=== PATIENT | female | born 1995 | race Two or more races ===

== ENCOUNTER 2017-10-19 16:44 | Emergency (ER) | payer SELFPAY ==
[2016-08-22 10:27] VITALS: Ht 165.1 cm; Wt 73.9 kg
[~2017-10-19] VITALS: Ht 165.1 cm; Wt 73.9 kg
[~2017-10-19 16:44] MED LIST: ALB6.7R INH; ALBU8.5H IH; ALPR-429 PO; AMOX-362 PO; AMOX500T10 PO; AZIT-17 PO; CEPH500C24 PO; FLUT1DIS27 IH; GLUC-158 PO; HYDR-385 PO; HYDR-4309 PO; IBUP800T37 PO; LOR5/325 PO; METH4TAB66 PO; ONDA4TAB PO; PENI-24 PO; PRED20TA6 PO; SULF-198 PO; TRAM-420 PO
[2017-10-19] MEDS ORDERED: ALPR-429 PO (16:56)
[2017-10-19 17:18] LABS: PLATELET COUNT, AUTOMATED 180 K/uL (150-450)
--- NOTE | 2017-10-19 17:54 | ER Report ---
History and Physical Time Seen By MD: 17:00 Hx. of Stated Complaint: patient reports epigastric pain that started last night. she is 10 weeks HPI/ROS CHIEF COMPLAINT: Abdominal pain HISTORY OF PRESENT ILLNESS: She is a 22-year-old female accompanied by her significant other, who presents the ED with complaint of abdominal pain for the past 2 days. She states that she felt the pain radiating into her chest and it felt like a sharp/burning pain. She believed that she was having some heartburn so she did take multiple different medications for this. She took Zantac, Pepto- Bismol, milk of magnesia, pantoprazole and did feel a little bit better this morning but was still having some of the pain particularly when eating. Patient is 10 weeks . She does have a OB appointment scheduled for next week. She denies any vaginal bleeding. She has not noted any cramping. She has no fever. Patient denies any past history of abdominal surgeries. REVIEW OF SYSTEMS: Constitutional: No fever, no chills. Cardiovascular: No chest pain, no palpitations. Respiratory: No cough, no shortness of breath. Gastrointestinal: See history of present illness. Genitourinary: No hematuria, dysuria, increased urinary frequency. Musculoskeletal: No back pain. Skin: No rashes. Neurological: No headache. Allergies: Coded Allergies: No Known Drug Allergies (Unverified , 10/19/17) Home Meds Reported Medications Alprazolam (XANAX) 0.5 Mg Tablet, 2 TAB PO BID, TAB 10/19/17 Albuterol Sulfate 90 Mcg/Act (PROAIR HFA 90 MCG/ACT) 8.5 Gm Hfa.aer.ad, 1-2 PUFF IH 3-4XD, INHALER 04/25/17 Fluticasone/Salmeterol (ADVAIR 100-50 DISKUS) 1 Each Disk.w.dev, 1 EACH IH BID 04/18/17 Discontinued Scripts Hydrocodone Bit/Acetaminophen (HYDROCODON-ACETAMINOPHEN 5-325) 1 Each Tablet, 1 EACH PO Q4-6H Y for PAIN, #10 TAB Prov:REBECA ZIEGLER [facility] 07/09/17 Prednisone (PREDNISONE) 20 Mg Tablet, 40 MG PO DAILY, #10 TAB Prov:REBECA ZIEGLER [facility] 07/09/17 Tramadol Hcl (TRAMADOL HCL) 50 Mg Tablet, 1 TAB PO Q6H Y for PAIN, #15 MG TAKE ONE TO TWO TABLETS BY MOUTH EVERY FOUR TO SIX HOURS NEEDED Prov:KISHA ROJAS DO 06/29/17 Reviewed Nurses Notes: Yes Old Medical Records Reviewed: Yes Hx Smoking: No Smoking Status: Never Smoker Exposure to Second Hand Smoke?: No Hx Substance Use Disorder: No Hx Alcohol Use: No Constitutional Vital Sign - Last 24 Hours 10/19/17 10/19/17 10/19/17 10/19/17 16:51 16:52 17:14 18:10 Temp 98.9 Pulse 85 74 Resp 20 B/P (MAP) 110/61 110/61 (77) 112/75 (87) Pulse Ox 95 98 O2 Delivery Room Air 10/19/17 10/19/17 10/19/17 10/19/17 18:14 18:30 18:35 18:50 Pulse 79 76 88 B/P (MAP) 117/83 (94) Pulse Ox 96 96 99 Physical Exam General Appearance: The patient is alert, has no immediate need for airway protection and no signs of toxicity. Patient appears to be no acute distress. Eyes: Pupils equal and round no pallor or injection. ENT, Mouth: Mucous membranes are moist. Respiratory: There are no retractions, lungs are clear to auscultation. Cardiovascular: Regular rate and rhythm. Gastrointestinal: There is right upper quadrant, epigastric, left upper quadrant tenderness with palpation. Normal bowel sounds in all 4 quadrants. Abdomen is soft. There is no rebound or guarding present. Skin: Warm and dry, no rashes. Musculoskeletal: Neck is supple non tender. Extremities are nontender, nonswollen and have full range of motion. DIFFERENTIAL DIAGNOSIS: After history and physical exam differential diagnosis was considered for abdominal pain including but not limited to appendicitis, cholecystitis, gastritis and urinary tract infection. Medical Decision Making Data Points Result Diagram: 10/19/17 1658 10/19/17 1658 Laboratory Hematology Test 10/19/17 16:58 10/19/17 17:29 Red Blood Count 4.65 M/uL (4.17-5.56) Mean Corpuscular Volume 90.6 fL (80.0-96.0) Mean Corpuscular Hemoglobin 31.5 pg (26.0-33.0) Mean Corpuscular Hemoglobin Concent 34.8 g/dL (32.0-36.0) Red Cell Distribution Width 12.5 % (11.5-14.5) Mean Platelet Volume 9.4 fL (7.2-11.1) Neutrophils (%) (Auto) 66.8 % (39.4-72.5) Lymphocytes (%) (Auto) 20.1 % (17.6-49.6) Monocytes (%) (Auto) 10.4 % (4.1-12.4) Eosinophils (%) (Auto) 2.5 % (0.4-6.7) Basophils (%) (Auto) 0.2 % (0.3-1.4) Nucleated RBC Relative Count (auto) 0.0 /100WBC Neutrophils # (Auto) 6.6 K/uL (2.0-7.4) Lymphocytes # (Auto) 2.0 K/uL (1.3-3.6) Monocytes # (Auto) 1.0 K/uL (0.3-1.0) Eosinophils # (Auto) 0.2 K/uL (0.0-0.5) Basophils # (Auto) 0.0 K/uL (0.0-0.1) Nucleated RBC Absolute Count (auto) 0.00 K/uL Sodium Level 138 mmol/L (137-145) Potassium Level 3.3 mmol/L (3.5-5.0) Chloride Level 104 mmol/L (98-107) Carbon Dioxide Level 21 mmol/L (22-31) Blood Urea Nitrogen 10 mg/dl (7-18) Creatinine 0.60 mg/dl (0.52-1.04) Glomerular Filtration Rate Calc > 60.0 Random Glucose 76 mg/dl (75-110) Calcium Level 8.5 mg/dl (8.4-10.2) Total Bilirubin 0.3 mg/dl (0.2-1.3) Aspartate Amino Transf (AST/SGOT) 20 U/L (0-35) Alanine Aminotransferase (ALT/SGPT) 34 U/L (0-56) Alkaline Phosphatase 75 U/L (0-126) Total Protein 7.1 gm/dl (6.3-8.2) Albumin 3.9 g/dl (3.5-5.0) Lipase 67 U/L (23-300) Human Chorionic Gonadotropin, Quant 959391 mIU/ml Urine Color Yellow Urine Clarity Slightly-cloudy Urine pH 6.0 pH (4.8-9.5) Urine Specific [place] 1.026 Urine Protein Negative mg/dL (NEGATIVE) Urine Glucose (UA) Negative mg/dL (NEGATIVE) Urine Ketones 20 mg/dL (NEGATIVE) Urine Blood Moderate (NEGATIVE) Urine Nitrite Negative (NEGATIVE) Urine Bilirubin Negative (NEGATIVE) Urine Urobilinogen 2.0 mg/dL (0.2-1.9) Urine Leukocyte Esterase Large (NEGATIVE) Urine RBC 16 /HPF (0-2/HPF) Urine WBC 2 /HPF (0-5/HPF) Urine Squamous Epithelial Cells Many /LPF (</=FEW) Urine Bacteria Negative /HPF (NONE-FEW) Urine Mucus Few /HPF (NONE-FEW) Chemistry Test 10/19/17 16:58 10/19/17 17:29 White Blood Count 9.9 k/uL (4.5-11.0) Red Blood Count 4.65 M/uL (4.17-5.56) Hemoglobin 14.7 g/dL (12.0-16.0) Hematocrit 42.1 % (34.0-47.0) Mean Corpuscular Volume 90.6 fL (80.0-96.0) Mean Corpuscular Hemoglobin 31.5 pg (26.0-33.0) Mean Corpuscular Hemoglobin Concent 34.8 g/dL (32.0-36.0) Red Cell Distribution Width 12.5 % (11.5-14.5) Platelet Count 180 K/uL (150-450) Mean Platelet Volume 9.4 fL (7.2-11.1) Neutrophils (%) (Auto) 66.8 % (39.4-72.5) Lymphocytes (%) (Auto) 20.1 % (17.6-49.6) Monocytes (%) (Auto) 10.4 % (4.1-12.4) Eosinophils (%) (Auto) 2.5 % (0.4-6.7) Basophils (%) (Auto) 0.2 % (0.3-1.4) Nucleated RBC Relative Count (auto) 0.0 /100WBC Neutrophils # (Auto) 6.6 K/uL (2.0-7.4) Lymphocytes # (Auto) 2.0 K/uL (1.3-3.6) Monocytes # (Auto) 1.0 K/uL (0.3-1.0) Eosinophils # (Auto) 0.2 K/uL (0.0-0.5) Basophils # (Auto) 0.0 K/uL (0.0-0.1) Nucleated RBC Absolute Count (auto) 0.00 K/uL Glomerular Filtration Rate Calc > 60.0 Calcium Level 8.5 mg/dl (8.4-10.2) Total Bilirubin 0.3 mg/dl (0.2-1.3) Aspartate Amino Transf (AST/SGOT) 20 U/L (0-35) Alanine Aminotransferase (ALT/SGPT) 34 U/L (0-56) Alkaline Phosphatase 75 U/L (0-126) Total Protein 7.1 gm/dl (6.3-8.2) Albumin 3.9 g/dl (3.5-5.0) Lipase 67 U/L (23-300) Human Chorionic Gonadotropin, Quant 027384 mIU/ml Urine Color Yellow Urine Clarity Slightly-cloudy Urine pH 6.0 pH (4.8-9.5) Urine Specific [place] 1.026 Urine Protein Negative mg/dL (NEGATIVE) Urine Glucose (UA) Negative mg/dL (NEGATIVE) Urine Ketones 20 mg/dL (NEGATIVE) Urine Blood Moderate (NEGATIVE) Urine Nitrite Negative (NEGATIVE) Urine Bilirubin Negative (NEGATIVE) Urine Urobilinogen 2.0 mg/dL (0.2-1.9) Urine Leukocyte Esterase Large (NEGATIVE) Urine RBC 16 /HPF (0-2/HPF) Urine WBC 2 /HPF (0-5/HPF) Urine Squamous Epithelial Cells Many /LPF (</=FEW) Urine Bacteria Negative /HPF (NONE-FEW) Urine Mucus Few /HPF (NONE-FEW) Urinalysis Test 10/19/17 17:29 Urine Color Yellow Urine Clarity Slightly-cloudy Urine pH 6.0 pH (4.8-9.5) Urine Specific [place] 1.026 Urine Protein Negative mg/dL (NEGATIVE) Urine Glucose (UA) Negative mg/dL (NEGATIVE) Urine Ketones 20 mg/dL (NEGATIVE) Urine Blood Moderate (NEGATIVE) Urine Nitrite Negative (NEGATIVE) Urine Bilirubin Negative (NEGATIVE) Urine Urobilinogen 2.0 mg/dL (0.2-1.9) Urine Leukocyte Esterase Large (NEGATIVE) Urine RBC 16 /HPF (0-2/HPF) Urine WBC 2 /HPF (0-5/HPF) Urine Squamous Epithelial Cells Many /LPF (</=FEW) Urine Bacteria Negative /HPF (NONE-FEW) Urine Mucus Few /HPF (NONE-FEW) EKG/Imaging Imaging Pelvic US: IMPRESSION: 1. Single live early intrauterine gestation with dates and measurements as above 2. Small subchorionic hemorrhage. 3. Left ovary was not visualized. Report Dictated By: Berry Bejarano at 10/19/2017 6:33 PM Report E-Signed By: Berry Bejarano at 10/19/2017 6:36 PM ED Course/Re-evaluation ED Course Will obtain labs and pelvic ultrasound. 10/19/2017 6:56:46 pm - discussed pelvic ultrasound results with patient. She does have a live fetus with a small subchorionic hemorrhage noted. She is not having any vaginal bleeding at this time. She does not believe she ever had receive a RhoGAM shot with any of her previous 4 pregnancies. We'll obtain a be oh Rh typing. Discussed patient with Dr. Pascal, NUCLEAR PHYSICIST, who advises to have patient use pelvic rest and follow-up with NUCLEAR PHYSICIST in the next 2-3 days. She is currently pain-free and sleeping. She was given some Phenergan for nausea earlier and has resolved. Will prescribe her some Pepcid that she can use for the epigastric pain which is likely gastritis related. Decision to Disposition Date: Oct 19, 2017 Decision to Disposition Time: 18:57 Depart Departure Latest Vital Signs Vital Signs Date Time Temp Pulse Resp B/P (MAP) Pulse Ox O2 Delivery O2 Flow Rate FiO2 10/19/17 18:50 88 99 10/19/17 18:30 117/83 (94) 10/19/17 16:51 98.9 20 Room Air Impression: Primary Impression: Epigastric pain Additional Impression: Subchorionic hemorrhage in first trimester Condition: Improved Disposition: HOME OR SELF-CARE New Scripts Famotidine (PEPCID) 20 Mg Tablet 20 MG PO QDAY, #10 TAB Prov: HELIO JAMES PA-C 10/19/17 Additional Instructions: Stay well-hydrated. Pelvic rest. Follow-up with NUCLEAR PHYSICIST in 2-3 days. If having any worsening or concerning symptoms may return the Emergency Department. Problem Qualifiers Additional Impression: Subchorionic hemorrhage in first trimester Fetus number: single or unspecified fetus Qualified Codes: O41.8X10 - Other specified disorders of amniotic fluid and membranes, first trimester, not applicable or unspecified; O46.8X1 - Other antepartum hemorrhage, first trimester HELIO JAMES PA-C Oct 19, 2017 17:54
[2017-10-19] MEDS ORDERED: PROMETHAZINE 25 MG/ML 1 ML AMP IVP ONE (18:15)
[2017-10-19 18:30] VITALS: BP 117/83
--- NOTE | 2017-10-19 18:40 | RADIOLOGY IMAGING REPORT ---
[place] [facility] [place] NAME: Tami Villasenor : 1995 MR: [id number] V: [id number] EXAM DATE: ORDERING PHYSICIAN: HELIO JAMES TECHNOLOGIST: [place] [facility] [place] : 1995 Visit/Account:[id number] Date of Sevice: 10/19/2017 OB Ultrasound < 14 weeks Additional Pertinent history: Abdominal pain. Early . COMPARISON STUDIES: None available FINDINGS: Gestational sac: intrauterine and unremarkable Yolk sac: Visualized pole: Visualized cardiac activity: 167 bpm Estimated gestational age: 9 weeks and 2 days based on average [place]-rump length of 2.5 cm. BETZAIDA: 05/22/2018 by ultrasound and 05/19/2018 clinically. Subchorionic hemorrhage: Small subchorionic hemorrhage is present measuring 1.6 x 0.6 cm. Uterus: gravid, otherwise negative Maternal ovaries: Right ovary is normal with normal blood flow. The left ovary is not visualized. Adnexa: No adnexal mass lesion or focal abnormality. Free pelvic fluid: none IMPRESSION: 1. Single live early intrauterine gestation with dates and measurements as above 2. Small subchorionic hemorrhage. 3. Left ovary was not visualized. Report Dictated By: Berry Bejarano at 10/19/2017 6:33 PM Report E-Signed By: Berry Bejarano at 10/19/2017 6:36 PM WSN:[id number]
[2017-10-19] MEDS ORDERED: FAMO20TA28 PO (19:00)
== END 2017-10-19 19:07 | disposition home or self-care (01) ==
LOC: ER 16:44
DX: O41.8X10 Other specified disorders of amniotic fluid and membranes, first trimester, not applicable or unspecified (principal); O46.8X1 Other antepartum hemorrhage, first trimester; Z3A.10 10 weeks gestation of pregnancy
CPT/HCPCS: 76817; 81001; 83690; 84702; 85025; 86900; 86901; 96374; 99284; J2550; 82040; 82247; 82310; 82374; 82435; 82565; 82947; 84075; 84132; 84155; 84295; 84450; 84460; 84520

== ENCOUNTER 2018-03-17 21:29 | Outpatient (CLI) | payer MEDICAID ==
[2016-08-22 10:27] VITALS: BMI 31.6
[~2018-03-17 21:29] MED LIST changes: +FAMO20TA28 PO
[2018-03-17] MEDS ORDERED: LR(*) 1000 ML BAG 1,000 ML IV PRN (21:32)
[2018-03-17 21:52] VITALS: BP 113/58
[2018-03-17 23:15] LABS: PLATELET COUNT, AUTOMATED 163 K/uL (150-450)
[2018-03-17] MEDS ORDERED: NITROFURANTOIN MONO 100 MG PO ONE (23:45)
[2018-03-18] MEDS ORDERED: NITR-105 PO (02:42)
== END 2018-03-18 00:10 | disposition home or self-care (01) ==
LOC: UNDOADMOB 21:29 → L&D 21:29 → OB 21:29 → UNDODISOB 03-18 00:10 → L&D 03-18 00:10 → EDSTATUS 03-22 08:25
PROVIDERS: ATTEND Obstetrics & Gynecology
DX: O26.893 Other specified pregnancy related conditions, third trimester (principal); Z3A.31 31 weeks gestation of pregnancy
CPT/HCPCS: 81001; 85025; G0463; 99213; G0378; G0379

== ENCOUNTER 2018-05-03 15:18 | Outpatient (CLI) | payer MEDICAID ==
[~2018-05-03] VITALS: Ht 165.1 cm; Wt 94.3 kg
[~2018-05-03 15:18] MED LIST changes: -HYDR-4309 PO; +HYDR-653 PO; +NITR-105 PO
[2018-05-03] MEDS ORDERED: LR(*) 1000 ML BAG 1,000 ML IV PRN (15:54)
[2018-05-03] MEDS ORDERED: FLUSH 10 ML SYR IVP PRN (15:55)
[2018-05-03] MEDS ORDERED: PREN-127 PO (16:11)
[2018-05-03 16:12] VITALS: BP 123/78; Ht 165.1 cm; Wt 94.3 kg
[2018-05-03] MEDS ORDERED: APAP/HYDROCODONE 325/5 TAB PO ONE (16:35)
[2018-05-03] MEDS ORDERED: NITR-105 PO ×2 (16:38→16:40)
[2018-05-03] MEDS ORDERED: ACET/HYDROC 5/325MG TH ER ONLY 2 TAB/BOTTLE PO ONE (16:50)
== END 2018-05-03 17:00 | disposition home or self-care (01) ==
LOC: UNDOADMIN 15:18 → OB 15:18 → L&D 15:18 → OB 15:18 → L&D 17:00 → UNDODISIN 17:00 → EDSTATUS 05-04 10:40
PROVIDERS: ATTEND Obstetrics & Gynecology
DX: O26.893 Other specified pregnancy related conditions, third trimester (principal); Z3A.38 38 weeks gestation of pregnancy
CPT/HCPCS: 81001; 84112; 87088; G0463; 99213

== ENCOUNTER 2018-05-06 00:21 | Inpatient (IN) | payer MEDICAID ==
[~2018-05-06] VITALS: Ht 165.1 cm; Wt 94.3 kg
[~2018-05-06 00:21] MED LIST changes: +HYDR-4309 PO; -HYDR-653 PO; +PREN-127 PO
[2018-05-06] MEDS ORDERED: OXYTOCIN 30 UNIT/D5LR 500 ML 500 ML IV PRN ×3 (00:22→03:11)
[2018-05-06] MEDS ORDERED: FAMOTIDINE(*) 20MG/50ML PREMIX 50 ML IVPB PRN ×2 (00:22→01:28)
[2018-05-06] MEDS ORDERED: FLUSH 10 ML SYR IVP PRN ×2 (00:25→01:30)
[2018-05-06] MEDS ORDERED: fentaNYL CITR 100 MCG/2 ML AMP IVP PRN ×2 (00:25→01:30)
[2018-05-06] MEDS ORDERED: LIDOCAINE/SOD BICARB 8.4% SYR SC PRN ×2 (00:25→01:30)
[2018-05-06] MEDS ORDERED: LIDOCAINE 1% LOCAL 300 MG/30ML INJ PRN ×2 (00:25→01:30)
[2018-05-06] MEDS ORDERED: METOCLOPRAMIDE 10 MG/2 ML SDV IVP PRN ×2 (00:25→01:30)
[2018-05-06 00:30] VITALS: BP 141/79; Ht 165.1 cm; Wt 94.3 kg
[2018-05-06] MEDS: LR(*) 1000 ML BAG 1,000 ML IV SCH ×2 (00:37→03:45)
[2018-05-06] MEDS ORDERED: ONDA4TAB PO (00:49)
[2018-05-06] MEDS ORDERED: HYDR-6015 PO (00:49)
[2018-05-06] MEDS ORDERED: NS(*) 0.9% 1000 ML BAG 1,000 ML IV ONE (01:05)
[2018-05-06] MEDS ORDERED: ceFAZolin(*) 2GM/D5W 50ML 50 ML IVPB PRN (01:28)
[2018-05-06 01:29] LABS: PLATELET COUNT, AUTOMATED 144 K/uL (150-450)
[2018-05-06] MEDS ORDERED: LIDO/EPI 2% MPF 1:200,000 20ML EPI PRN (01:50)
[2018-05-06] MEDS ORDERED: fentaNYL CITR 100 MCG/2 ML AMP IT PRN (01:50)
[2018-05-06] MEDS ORDERED: EPIDURAL KEYS XX PRN (01:50)
[2018-05-06] MEDS ORDERED: BUPIVACAINE 0.25% MPF INJ EPI PRN (01:50)
[2018-05-06] MEDS ORDERED: ONDANSETRON 4 MG/2 ML VIAL IVP PRN (01:50)
[2018-05-06] MEDS ORDERED: BUPIVACAINE 0.5% INJ 30ML VIAL EPI PRN (01:50)
[2018-05-06] MEDS ORDERED: LIDOCAINE/PF 2% 200MG/10ML AMP 200 MG/10 ML AMPUL EPI PRN (01:50)
[2018-05-06] MEDS ORDERED: FENTANYL/ROPIVACAINE 100 ML BAG EPI PRN (01:50)
--- NOTE | 2018-05-06 01:56 | History & Physical ---
History of Present Illness EDC per LMP: May 19, 2018 Estimated Gestational Age: 38.1 Chief Complaint Contractions History of Present Illness 23yo at 38w1d presents with contractions. She reports these have worsened over the past few hours. She reports good FM. No VB, LOF. No preeclampsia symptoms. PNR reviewed. c/b grandmultip, asthma and history of drug use. History Patient's Blood Type: O Positive Rubella Status: Immune Group B Strep Screen: Negative Obstetrical History: G1: 38wk G2: 36wk G3: 38wk G4: 38wk G5: Current Past Medical History: PMH: Asthma PSH: None Allergies: Coded Allergies: No Known Drug Allergies (Unverified , 10/19/17) Social History: No T/E use during . She does have a history of cocaine and illicit drug use. Med Rec Home Meds Active Scripts Famotidine (PEPCID) 20 Mg Tablet, 20 MG PO QDAY, #10 TAB Prov:HELIO JAMES PA-C 10/19/17 Reported Medications Hydrocodone Bit/Acetaminophen (HYDROCODON-ACETAMINOPHEN 5-300) 1 Each Tablet, 1 EACH PO Q4-6H 05/06/18 Ondansetron (ZOFRAN ODT) 4 Mg Tab.rapdis, 4 MG PO Q12H, TAB.SALIMA 05/06/18 Nitrofurantoin Monohyd/M-Cryst (MACROBID 100 MG CAPSULE) 100 Mg Capsule, 100 MG PO BID for 7 Days, #14 CAPSULE 05/03/18 Vits W-Ca,Fe,Fa(<1MG) ( VITAMINS) 1 Each Tablet, 1 EACH PO DAILY, TAB 05/03/18 Albuterol Sulfate 90 Mcg/Act (PROAIR HFA 90 MCG/ACT) 8.5 Gm Hfa.aer.ad, 1-2 PUFF IH 3-4XD, INHALER 04/25/17 Fluticasone/Salmeterol (ADVAIR 100-50 DISKUS) 1 Each Disk.w.dev, 1 EACH IH BID 04/18/17 Discontinued Reported Medications Nitrofurantoin Monohyd/M-Cryst (MACROBID 100 MG CAPSULE) 100 Mg Capsule, 100 MG PO BID for 7 Days, #14 CAPSULE 9/19/18 Discontinued Scripts Nitrofurantoin Monohyd/M-Cryst (MACROBID 100 MG CAPSULE) 100 Mg Capsule, 100 MG PO BID, #14 CAPSULE Prov:MANJIT CLEMENTE MD 03/18/18 Review of Systems Constitutional: No Fever Neurological: No Syncope Eyes: No Vision Change Cardiovascular: No Chest Pain Respiratory: No Shortness of Breath Gastrointestinal: Nausea; No Vomiting, No Diarrhea Genitourinary: No Dysuria Musculoskeletal: No Pain Psychiatric: No Depression, No Anxiety Exam General Exam General Apperance: Alert/Awake/No Acute Distress Neuro: No Gross deficits Eyes: Normal Extraocular Movement & Vison Cardiovascular: Regular Rate and Rhythm Respiratory: No Respiratory Distress, Clear to Auscultation Abdomen: Gravid - Non-Tender : Normal Musculoskeletal: No Weakness/Pain Extremities: No Cyanosis,Clubbing or Edema Integumentary: Skin Intact without Lesions or Rash Psychological: Alert & Oriented X3, Appropriate Mood & Affect Vaginal Discharge/Fluid?: Clear Fluid Cervical Dialation: 4 Cervical Effacement (%): 70 Cervical Consistency: Soft Cervical Position: Anterior Station: -2 Presentation: Vertex Uterine Contractions(Q min): 3 UC Resting Tone: Soft Fetus Feeling Movement?: Yes Heart Tones: 155 Heart Tone Variabilty: Moderate FHT Accelerations: 15X15 FHT Decelerations: Late FHT Category: II Medical Decision Making Pre-Admit Course Medical Record Review: Yes Assessment and Plan Problems: (1) Uterine contractions Assessment & Plan: 23yo at 38w1d presents with contractions. FHT reveal category 2 due to occasional late decelerations, otherwise she has good variability and accels. Due to late decelerations, will try to expedite delivery. AROM with clear fluid. Will augment with pitocin if needed, but she is elieezr every 2-3 minutes so far on her own. An FSE is also placed to help monitor FHT during the epidural procedure and labor. She did take hydrocodone prior to arrival. (2) 38 weeks gestation of Status: BRYANT Wallis MD May 06, 2018 01:56
--- NOTE | 2018-05-06 02:46 | Anesthesia OB Pre-Anes Eval ---
History of Present Illness Anesthesia Start Date: May 06, 2018 Anesthesia Start Time: 01:59 OB Anesthesia Diagnosis: spontaneous labor Current Complication: obesity EDC: May 19, 2018 : 5 Para: 4 Pain Ratin Result Diagram: 05/06/18 0117 Weight (Pounds): 208 BMI Calculated: 34.61 Past Medical History Medical History: obesity, asthma (controlled with rare inhaler use.) Previous Anesthesia: epidural Hx Anesthesia Reactions: No Hx Family Anesthesia Reaction: No Past Complications: obesity Home Meds Active Scripts Famotidine (PEPCID) 20 Mg Tablet, 20 MG PO QDAY, #10 TAB Prov:HELIO JAMES PA-C 10/19/17 Reported Medications Hydrocodone Bit/Acetaminophen (HYDROCODON-ACETAMINOPHEN 5-300) 1 Each Tablet, 1 EACH PO Q4-6H 05/06/18 Ondansetron (ZOFRAN ODT) 4 Mg Tab.rapdis, 4 MG PO Q12H, TAB.SALIMA 05/06/18 Nitrofurantoin Monohyd/M-Cryst (MACROBID 100 MG CAPSULE) 100 Mg Capsule, 100 MG PO BID for 7 Days, #14 CAPSULE 05/03/18 Vits W-Ca,Fe,Fa(<1MG) ( VITAMINS) 1 Each Tablet, 1 EACH PO DAILY, TAB 05/03/18 Albuterol Sulfate 90 Mcg/Act (PROAIR HFA 90 MCG/ACT) 8.5 Gm Hfa.aer.ad, 1-2 PUFF IH 3-4XD, INHALER 04/25/17 Fluticasone/Salmeterol (ADVAIR 100-50 DISKUS) 1 Each Disk.w.dev, 1 EACH IH BID 04/18/17 Discontinued Reported Medications Nitrofurantoin Monohyd/M-Cryst (MACROBID 100 MG CAPSULE) 100 Mg Capsule, 100 MG PO BID for 7 Days, #14 CAPSULE 05/03/18 Discontinued Scripts Nitrofurantoin Monohyd/M-Cryst (MACROBID 100 MG CAPSULE) 100 Mg Capsule, 100 MG PO BID, #14 CAPSULE Prov:MANJIT CLEMENTE MD 03/18/18 Allergies: Coded Allergies: No Known Drug Allergies (Unverified , 10/19/17) Anesthesia OB ROS Neurological: No migraines/headaches, No seizures, No neuropathy, No other Pulmonary: asthma Airway Class: ll Cardiovascular ROS: No edema, No arrhythmia, No other ROS: No Herpes, No STD(s), No Liver Disease, No Renal Disease, No Other Endocrine ROS: No diabetes, No gestational diabetes, No thyroid disorder, No other Musculoskeletal ROS: No low back pain, No low back injury, No scoliosis, No other ASA Classification: 2 Assessment and Plan Anesthesia Plan: LEB (dural puncture technique) DILLON JACOBS CRNA May 06, 2018 02:46
--- NOTE | 2018-05-06 02:50 | Procedure Note ---
Anesthetic Placement Note Anesthesia Plan: LEB (dural puncture technique) Permit for Anesthesia Signed: Yes Anesthesia Technique: Patient Sitting Anesthesia Prep: Chlorhexidine Interspace: L 3-4 Local Anesthetic: 1% Lidocaine, 25 Gauge Needle Amount Local - cc's: 3 Anesthesia Needle: 17g Touhjere/Maryliff Anesthesia Attempts: 1 (1 needle redirection cephalad) Loss of Resistance: Normal Saline Depth of KASSI (cm): 5.5 Epidural Needle Placement: No CSF, No Blood, No Parasthesia Intrathecal Needle: 27 Gauge Pencan Cerebral Spinal Fluid: Yes Catheter Insertion (cm): 9.5 Catheter Type: Lozada - Spring Wound Epidural Dressing: Tegaderm, Tape Anesthesia Tray: Lot Number ([id number]), Expiration Date (04/14/2019), Reference Number ([id number]) Anesthesia Medications: Intrathecal Dose: mcg Fentanyl Epidural Test Dose: 1.5 Lido/Epi (1:200,000), Dose - mL (5 mL incrementally ), Time (0218), Negative Epidural Loading Dose: 0.2% Ropivicaine, With Fentanyl 2mcg/ml, Dose - ml (6), Time (0230), Other (100 mcg fentanyl) Epidural Infusion: 0.2% Ropivicaine, With Fentanyl 2mcg/ml, Start Time: (0230) Epidural Pump Setting: Bolus Dose - mL (5), Lockout - Minutes (15), Maintenance Rate - mL/hr (8), Maximum per Hour - mL (23) Complications: None DILLON JACOBS CRNA May 06, 2018 02:50
[2018-05-06] MEDS ORDERED: TERBUTALINE SULF 1 MG/ML VIAL SUBQ PRN (03:15)
--- NOTE | 2018-05-06 04:18 | OB Delivery Note ---
Delivery Note Vaginal Delivery Type: Vacuum Delivery Date: May 06, 2018 Delivery Time: 04:02 Estimated Gestational Age(wks): 38.1 Length of Labor Stage II (hrs): 0.6 Labor Stage III (minutes): 7 Delivery Anesthesia: Epidural Infant Sex: Female Apgars: 1 Minute (8), 5 Minute (9) Notes: Vacuum for recurrent deep variable decelerations with pushing Chief Controller Center in Attendence: BRYANT Navas MD May 06, 2018 04:18
[2018-05-06] MEDS ORDERED: ceFAZolin(*) 2GM/D5W 50ML 50 ML IVPB ONE (04:20)
[2018-05-06] MEDS ORDERED: ACETAMINOPHEN 325 MG TAB PO PRN (04:25)
[2018-05-06] MEDS ORDERED: INFLUENZA VIRUS VAC 0.5ML SYR IM ONLY ONE (04:25)
[2018-05-06] MEDS ORDERED: LANOLIN OINT 7 GM TUBE TP PRN (04:25)
[2018-05-06] MEDS ORDERED: GLYCERIN/WITCH HAZEL LEAF 1 PK TOP PRN (04:25)
[2018-05-06] MEDS ORDERED: MEASLES,MUMP,RUBELLA VAC 0.5ML SC ONE (04:25)
[2018-05-06] MEDS ORDERED: MAGNESIUM HYDROXIDE* 30ML UDCP PO PRN (04:25)
[2018-05-06] MEDS ORDERED: DIPHTH/TETANUS/ACEL. PERTUSSIS IM ONE (04:25)
[2018-05-06] MEDS ORDERED: HYDROCORTISONE 2.5% CR 30GM TB PR PRN (04:25)
[2018-05-06] MEDS ORDERED: LOR5/325 PO (04:27)
[2018-05-06] MEDS ORDERED: IBUP800T37 PO (04:27)
[2018-05-06] MEDS: BENZOCAINE 20% 60 ML BTL TP PRN (06:29)
[2018-05-06] MEDS: APAP/HYDROCODONE 325/5 TAB PO PRN ×5 (07:00→20:45)
[2018-05-06 07:15] VITALS: BP 119/60
[2018-05-06] MEDS ORDERED: IBUPROFEN 800 MG TAB PO SCH (09:00)
--- NOTE | 2018-05-06 09:01 | DELIVERY NOTE ---
DELIVERY DATE: May 06, 2018 SURGEON: Jovita Monsivais MD ANESTHESIA: Epidural by Santiago Hartman CRNA PREOPERATIVE DIAGNOSIS: 1. Intrauterine at 38 weeks and 1 day presenting in spontaneous labor. 2. Recurrent deep deceleration with pushing. POSTOPERATIVE DIAGNOSIS: 1. Intrauterine at 38 weeks and 1 day presenting in spontaneous labor. 2. Recurrent deep deceleration with pushing. 3. Delivery of a viable female at 0402 hours with weight unavailable and Apgars of 8 at one minute and 9 at five minutes. PROCEDURE 1. Vacuum-assisted vaginal delivery. 2. Manual extraction of placenta. ESTIMATED BLOOD LOSS 200 mL. INDICATIONS This patient is a 23-year-old 5, para 4 who presented at 38 weeks and 1 day with complaints of regular uterine contractions. At the time of presentation, she was 4, 70 and -2 station. When she was initially admitted, she had a category 2 heart tracing due to tachycardia and occasional late decelerations. At that time, she was admitted and started with IV fluids and labs. An amniotomy was performed at 0140 hours to try to expedite delivery and she received an epidural for anesthesia. Pitocin was started for a very short time to augment her labor but was stopped due to tachysystole within the first 15 minutes. The patient was able to progress to complete at 0324 hours, at which time she was allowed to start pushing. PROCEDURE The patient was properly identified and placed in the dorsolithotomy position and prepped and draped in the usual fashion for a vaginal delivery. She was allowed to push and had descensus of the vertex with the first 30 minutes of pushing. At 0354 hours, she began having deep decelerations with pushing with each contraction, going down to the 60's. There was return to baseline between contractions but she was unable to make excellent descensus with her pushing. Therefore, the patient was consented for a vacuum-assisted vaginal delivery due to heart tones. A Kiwi vacuum was then placed between contractions. When her final contraction was initiated, the Kiwi was placed on suction to the green zone. Very gentle traction was applied while the patient was pushing with her next push and the 's vertex easily began . The vacuum was then removed and the was delivered in the direct OS position over an intact perineum. The anterior shoulder delivered easily followed by the posterior shoulder. The remainder of the was easily delivered. The had spontaneous cry and spontaneous movement of all four extremities. The oropharynx and nasopharynx were bulb suctioned and the was passed to mother's abdomen while nursing personnel was in attendance. After two minutes, the cord was clamped x2 and cut by the father of the baby. Cord blood was then obtained and passed off the table. Examination of the cervix, vaginal vault and perineum revealed no laceration. Pitocin was started through IV fluid to help firm the uterus. The placenta began delivering and was partially out spontaneously when some resistance was noted. The placenta was then further followed up to the level of the cervix, where it appeared that it may have been bilobed as there was a separation of membrane in the cervical canal with additional placenta in the uterus. Due to this bilobed finding at this time, the remainder of the placenta was manually removed and the placenta was sent to pathology for further evaluation. Due to the manual extraction, the patient was given one dose of Ancef during this procedure. The patient tolerated the procedure well and recovered in labor and delivery with the infant. All sponge and needle counts were correct at the end of this procedure. MTDD
[2018-05-06] MEDS: DOCUSATE CALCIUM 240 MG CAP PO SCH ×2 (10:55→20:45)
[2018-05-06 11:00] VITALS: BP 126/64
--- NOTE | 2018-05-06 11:23 | Anesthesia Post Eval Note ---
Anesthesia Post Eval Note Vital Signs Date Time Temp Pulse Resp B/P (MAP) Pulse Ox O2 Delivery O2 Flow Rate FiO2 05/06/18 07:15 98.2 107 14 119/60 (79) Room Air 05/06/18 00:30 96 Pt able to participate in Eval: Yes Cardiovascular Status: Satisfactory Respiratory Status: Satisfactory Pain Managment: Satisfactory PO Nausea/Vomiting: Satisfactory Temperature Management: Satisfactory Mental Status: Satisfactory, Alert, Oriented X3 Post-Op Hydration Status: Satisfactory, Tolerating PO Well, Voiding w/o Difficulty Anesthesia Type: LEB Anesthesia Tolerance: No anesthesia concerns currently DILLON JACOBS MANAGER PATHOLOGY May 06, 2018 11:23
--- NOTE | 2018-05-06 11:24 | Anesthesia Progress Note ---
Assessment and Plan Anesthesia Stop Day: May 06, 2018 Anesthesia Stop Time: 04:03 DILLNO JACOBS CRNA May 06, 2018 11:24
[2018-05-06] MEDS: IBUPROFEN 800 MG TAB PO SCH ×2 (14:03→22:41)
[2018-05-06 15:00] VITALS: BP 125/77
[2018-05-06 19:35] VITALS: BP 118/62
[2018-05-06 23:35] VITALS: BP 115/63
[2018-05-06] MEDS: HYDROmorphone HCL 2 MG TAB PO PRN (23:55)
[2018-05-07] MEDS: APAP/HYDROCODONE 325/5 TAB PO PRN ×3 (02:24→12:01)
[2018-05-07 04:30] VITALS: BP 114/70
[2018-05-07] MEDS: IBUPROFEN 800 MG TAB PO SCH ×2 (05:59→13:30)
[2018-05-07] MEDS: HYDROmorphone HCL 2 MG TAB PO PRN ×2 (06:37→13:08)
[2018-05-07 09:00] VITALS: BP 126/58
[2018-05-07] MEDS: DOCUSATE CALCIUM 240 MG CAP PO SCH (09:54)
--- NOTE | 2018-05-07 10:01 | OB/GYN Progress Note ---
OB Subjective Progress Notes Subjective Doing well. Pain controlled and ambulating. Voiding well. Tolerating regular diet and bleeding light. GI: NEG Nausea : Voiding Well Pain: Moderate (cramps) OB Objective Physical Exam Vital Signs Date Time Temp Pulse Resp B/P (MAP) Pulse Ox O2 Delivery O2 Flow Rate FiO2 05/07/18 09:00 98.4 88 16 126/58 (80) Room Air 05/07/18 04:30 94 Intake and Output 05/07/18 07:00 Intake Total 840 ml Output Total 1100 ml Balance -260 ml Intake Oral 840 ml Output Urine Total 1100 ml # Voids 1 General Appearance: Alert/Awake/No Acute Distress Neurological: No Gross deficits Eyes: Normal Extraocular Movement & Vison Respiratory: No Respiratory Distress, Clear to Auscultation Abdomen: Fundus Firm, Non-Tender Extremities: No Cyanosis,Clubbing or Edema Integumentary: Skin Intact without Lesions or Rash Psychological: Alert & Oriented X3, Appropriate Mood & Affect Result Diagram: 05/06/18 0117 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
--- NOTE | 2018-05-07 10:02 | OB/GYN Discharge Summary ---
Discharge Summary Reason for Hosp/Final Diag: (1) care and examination immediately after delivery [place] Vital Signs Vital Signs Date Time Temp Pulse Resp B/P (MAP) Pulse Ox O2 Delivery O2 Flow Rate FiO2 05/07/18 09:00 98.4 88 16 126/58 (80) Room Air 05/07/18 04:30 94 Weight (Pounds): 208 Result Diagram: 05/06/18 0117 Condition: Improved Discharge: Home Home Meds Active Scripts Hydrocodone Bit/Acetaminophen (HYDROCODON-ACETAMINOPHEN 5-325) 1 Each Tablet, 1 EACH PO Q4-6H PRN for pain, #20 TAB 0 Refills Prov:BRYANT LOMAX MD 05/06/18 Famotidine (PEPCID) 20 Mg Tablet, 20 MG PO QDAY, #10 TAB Prov:HELIO JAMES PA-C 10/19/17 Reported Medications Hydrocodone Bit/Acetaminophen (HYDROCODON-ACETAMINOPHEN 5-300) 1 Each Tablet, 1 EACH PO Q4-6H 05/06/18 Ondansetron (ZOFRAN ODT) 4 Mg Tab.rapdis, 4 MG PO Q12H, TAB.SALIMA 05/06/18 Nitrofurantoin Monohyd/M-Cryst (MACROBID 100 MG CAPSULE) 100 Mg Capsule, 100 MG PO BID for 7 Days, #14 CAPSULE 05/03/18 Vits W-Ca,Fe,Fa(<1MG) ( VITAMINS) 1 Each Tablet, 1 EACH PO DAILY, TAB 05/03/18 Albuterol Sulfate 90 Mcg/Act (PROAIR HFA 90 MCG/ACT) 8.5 Gm Hfa.aer.ad, 1-2 PUFF IH 3-4XD, INHALER 04/25/17 Fluticasone/Salmeterol (ADVAIR 100-50 DISKUS) 1 Each Disk.w.dev, 1 EACH IH BID 04/18/17 Discontinued Reported Medications Nitrofurantoin Monohyd/M-Cryst (MACROBID 100 MG CAPSULE) 100 Mg Capsule, 100 MG PO BID for 7 Days, #14 CAPSULE 05/03/18 Discontinued Scripts Nitrofurantoin Monohyd/M-Cryst (MACROBID 100 MG CAPSULE) 100 Mg Capsule, 100 MG PO BID, #14 CAPSULE Prov:MANJIT CLEMENTE MD 03/18/18 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 Perry [phone] Follow up in: 6 wks PP or PO Discharge Diet: As Tolerates Discharge Activity: As Tolerates, No Heavy Lifting x 6 wks, No Heavy Lifting > 10lb, Pelvic Rest Copies to: NIELS PERRY MD ; NIELS PERRY MD May 07, 2018 10:02
[2018-05-07] MEDS ORDERED: HYDR-385 PO (10:05)
[2018-05-07] MEDS: BENZOCAINE 20% 60 ML BTL TP PRN (13:29)
[2018-05-07 13:39] VITALS: BP 126/73
== END 2018-05-07 14:15 | disposition home or self-care (01) | DRG 767 ==
LOC: OB 00:21
PROVIDERS: ADMIT Obstetrics & Gynecology; ATTEND Obstetrics & Gynecology
PROC: 10D07Z6 Extraction of Products of Conception, Vacuum, Via Natural or Artificial Opening (ICD-10-PCS; principal; 2018-05-06)
PROC: 10D17Z9 Manual Extraction of Products of Conception, Retained, Via Natural or Artificial Opening (ICD-10-PCS; 2018-05-06)
PROC: 10907ZC Drainage of Amniotic Fluid, Therapeutic from Products of Conception, Via Natural or Artificial Opening (ICD-10-PCS; 2018-05-06)
PROC: 10H073Z Insertion of Monitoring Electrode into Products of Conception, Via Natural or Artificial Opening (ICD-10-PCS; 2018-05-06)
DX: O76 Abnormality in fetal heart rate and rhythm complicating labor and delivery (principal); Z37.0 Single live birth; O99.214 Obesity complicating childbirth; E66.9 Obesity, unspecified; Z68.34 Body mass index [BMI] 34.0-34.9, adult; Z3A.38 38 weeks gestation of pregnancy; J45.909 Unspecified asthma, uncomplicated; Z87.898 Personal history of other specified conditions; O99.52 Diseases of the respiratory system complicating childbirth; O43.193 Other malformation of placenta, third trimester
CPT/HCPCS: 36415; 59025; 82570; 84156; 85025; 86703; 86850; 86900; 86901; 88307; 90471; 90715; J0690; J2590; J7030; J7120; S0020

== ENCOUNTER 2018-11-05 21:49 | Emergency (ER) | payer MEDICAID ==
[2018-05-06 00:30] VITALS: BMI 34.6
[~2018-11-05 21:49] MED LIST changes: -HYDR-4309 PO; +HYDR-6015 PO; +HYDR-653 PO
--- NOTE | 2018-11-05 22:05 | ER Report ---
History and Physical Time Seen By MD: 22:00 HPI/ROS CHIEF COMPLAINT: Asthma exacerbation HISTORY OF PRESENT ILLNESS: 23-year-old female with a known history of asthma. She presents with increasing shortness of breath since yesterday. Patient notes prolonged expiration and difficulty expiring her air. Patient notes mild cold symptoms for 3 days. She notes no fever. She notes no productive cough. She's tried her preventative inhalers and her albuterol inhaler without improvement. Patient also complains of dizziness/near syncope. She notes general fatigue and weakness. REVIEW OF SYSTEMS: Respiratory: As above Cardiovascular: No chest pain, no palpitations. Gastrointestinal: No vomiting, no abdominal pain. Musculoskeletal: No back pain. Allergies: Coded Allergies: No Known Drug Allergies (Unverified , 10/19/17) Home Meds Active Scripts Prednisone (PREDNISONE) 20 Mg Tablet, 20 MG PO QDAY for reduce lung inflammation, #9 2 by mouth daily for 3 days then 1 by mouth daily for 3 days Prov:KISHA ROJAS DO 11/05/18 Hydrocodone Bit/Acetaminophen (HYDROCODON-ACETAMINOPHEN 5-325) 1 Each Tablet, 1- 2 EACH PO Q6H PRN for PAIN, #20 TAB 0 Refills Prov:NIELS PERRY MD 05/07/18 Ibuprofen (IBUPROFEN) 800 Mg Tablet, 1 TAB PO Q8H PRN for pain, #30 TAB 0 Refills TAKE WITH FOOD EVERY 8 HOURS Prov:BRYANT LOMAX MD 05/06/18 Famotidine (PEPCID) 20 Mg Tablet, 20 MG PO QDAY, #10 TAB Prov:HELIO JAMES PA-C 10/19/17 Reported Medications Nitrofurantoin Monohyd/M-Cryst (MACROBID 100 MG CAPSULE) 100 Mg Capsule, 100 MG PO BID for 7 Days, #14 CAPSULE 05/03/18 Vits W-Ca,Fe,Fa(<1MG) ( VITAMINS) 1 Each Tablet, 1 EACH PO DAILY, TAB 05/03/18 Albuterol Sulfate 90 Mcg/Act (PROAIR HFA 90 MCG/ACT) 8.5 Gm Hfa.aer.ad, 1-2 PUFF IH 3-4XD, INHALER 04/25/17 Fluticasone/Salmeterol (ADVAIR 100-50 DISKUS) 1 Each Disk.w.dev, 1 EACH IH BID 04/18/17 Past Medical/Surgical History Asthma Reviewed Nurses Notes: Yes Old Medical Records Reviewed: Yes Constitutional Vital Sign - Last 24 Hours 11/05/18 11/05/18 11/05/18 22:19 22:31 22:31 Temp 98.5 Pulse 60 64 69 Resp 18 16 16 B/P (MAP) 123/77 Pulse Ox 98 O2 Delivery Room Air Physical Exam Vital signs stable, afebrile, pulse ox normal General Appearance: The patient is alert, has no immediate need for airway protection and no current signs of toxicity. Skin warm, dry, pink HEENT: Pupils equal and round no injection. TMs normal, oropharynx with mild erythema, no exudate or petechiae Respiratory: Chest is non tender, lungs are clear to auscultation. Expiratory wheezing, poor air movement, prolonged expiration Cardiac: regular rate and rhythm Gastrointestinal: Abdomen is soft and non tender, no masses, bowel sounds normal. Musculoskeletal: Neck: Neck is supple and non tender. No lymphadenopathy Extremities have full range of motion and are non tender. No edema, no calf tenderness Skin: No rashes or lesions. DIFFERENTIAL DIAGNOSIS: After history and physical exam differential diagnosis was considered for shortness of breath including but not limited to pulmonary infectious process, COPD, asthma, pulmonary embolus and congestive heart failure. Medical Decision Making ED Course/Re-evaluation ED Course Patient was minute to an examination room. H&P was done. The differential diagnoses was considered. On clinical examination. Patient has mild expiratory wheezing. She has no fever, productive cough. She likely has viral syndrome exacerbating her asthma. She's had no improvement with her inhaler. Patient's treated with by mouth steroids 60 mg of prednisone. And an albuterol nebulizer 2. She is much improved on reevaluation. She'll be discharged home on a prednisone taper. She is offered refills of her albuterol, but she states she has plenty. Patient advised to follow-up with primary care if unimproved in 3-5 days. Decision to Disposition Date: Nov 05, 2018 Decision to Disposition Time: 22:46 Depart Departure Latest Vital Signs Vital Signs Date Time Temp Pulse Resp B/P (MAP) Pulse Ox O2 Delivery O2 Flow Rate FiO2 11/05/18 22:31 69 16 11/05/18 22:19 98.5 123/77 98 Room Air Impression: Primary Impression: Asthma with exacerbation Additional Impression: Viral URI Condition: Improved Disposition: HOME OR SELF-CARE New Scripts Prednisone (PREDNISONE) 20 Mg Tablet 20 MG PO QDAY for reduce lung inflammation, #9 2 by mouth daily for 3 days then 1 by mouth daily for 3 days Prov: KISHA ROJAS DO 11/05/18 Patient Instructions: Asthma (ED) Additional Instructions: Take prednisone as prescribed Follow-up with primary care if unimproved in 2-4 days Problem Qualifiers Primary Impression: Asthma with exacerbation Asthma severity: mild Asthma persistence: persistent Qualified Codes: J45.31 - Mild persistent asthma with (acute) exacerbation KISHA ROJAS DO Nov 05, 2018 22:05
[2018-11-05] MEDS ORDERED: predniSONE 20 MG TAB PO ONE (22:10)
[2018-11-05] MEDS ORDERED: ALBUTEROL 2.5 MG/3 ML NEB NEB ONE (22:10)
[2018-11-05 22:19] VITALS: BP 123/77
[2018-11-05] MEDS ORDERED: PRED20TA6 PO (22:47)
== END 2018-11-05 23:05 | disposition home or self-care (01) ==
LOC: ER 22:02
DX: J45.31 Mild persistent asthma with (acute) exacerbation (principal); J06.9 Acute upper respiratory infection, unspecified
CPT/HCPCS: 94640; 99283; J7512; J7613

== ENCOUNTER 2018-12-11 23:28 | Emergency (ER) | payer MEDICAID ==
[2018-05-06 00:30] VITALS: Wt 78.0 kg
--- NOTE | 2018-12-11 23:46 | ER Report ---
History and Physical Time Seen By MD: 23:46 Hx. of Stated Complaint: had two molars and two wisdom teeth pulled today. has taken tylenol and ibuprofen for pain with no relief HPI/ROS CHIEF COMPLAINT: Dental pain HISTORY OF PRESENT ILLNESS: This is a 23-year-old female. She had 4 teeth removed today, and is having increased pain. She has been using Tylenol and ibuprofen without improvement in her pain. Allergies: Coded Allergies: No Known Drug Allergies (Unverified , 10/19/17) Home Meds Active Scripts Ketorolac Tromethamine (KETOROLAC TROMETHAMINE) 10 Mg Tab, 10 MG PO Q6H PRN for PAIN, #12 TAB 0 Refills Prov:DONNA CHESTER MD 12/11/18 Tramadol Hcl (TRAMADOL HCL) 50 Mg Tablet, 50 MG PO Q6H PRN for PAIN, #12 TAB 0 Refills Prov:DONNA CHESTER MD 12/11/18 Prednisone (PREDNISONE) 20 Mg Tablet, 20 MG PO QDAY for reduce lung inflammation, #9 2 by mouth daily for 3 days then 1 by mouth daily for 3 days Prov:KISHA ROJAS DO 11/05/18 Hydrocodone Bit/Acetaminophen (HYDROCODON-ACETAMINOPHEN 5-325) 1 Each Tablet, 1- 2 EACH PO Q6H PRN for PAIN, #20 TAB 0 Refills Prov:NIELS PERRY MD 05/07/18 Ibuprofen (IBUPROFEN) 800 Mg Tablet, 1 TAB PO Q8H PRN for pain, #30 TAB 0 Refills TAKE WITH FOOD EVERY 8 HOURS Prov:BRYANT LOMAX MD 05/06/18 Famotidine (PEPCID) 20 Mg Tablet, 20 MG PO QDAY, #10 TAB Prov:HELIO JAMES PA-C 10/19/17 Reported Medications Nitrofurantoin Monohyd/M-Cryst (MACROBID 100 MG CAPSULE) 100 Mg Capsule, 100 MG PO BID for 7 Days, #14 CAPSULE 05/03/18 Vits W-Ca,Fe,Fa(<1MG) ( VITAMINS) 1 Each Tablet, 1 EACH PO DAILY, TAB 05/03/18 Albuterol Sulfate 90 Mcg/Act (PROAIR HFA 90 MCG/ACT) 8.5 Gm Hfa.aer.ad, 1-2 PUFF IH 3-4XD, INHALER 04/25/17 Fluticasone/Salmeterol (ADVAIR 100-50 DISKUS) 1 Each Disk.w.dev, 1 EACH IH BID 04/18/17 Reviewed Nurses Notes: Yes Hx Smoking: Yes Smoking Status: Former Smoker Exposure to Second Hand Smoke?: No Hx Substance Use Disorder: No Hx Alcohol Use: No Constitutional Vital Sign - Last 24 Hours 12/11/18 12/11/18 12/11/18 12/11/18 23:31 23:33 23:38 23:43 Temp 98.1 Pulse 74 74 89 81 Resp 18 B/P (MAP) 133/87 Pulse Ox 95 95 95 94 O2 Delivery Room Air 12/11/18 12/11/18 12/11/18 12/12/18 23:48 23:53 23:58 00:00 Pulse 77 82 85 B/P (MAP) 108/78 (88) Pulse Ox 95 95 95 12/12/18 12/12/18 12/12/18 12/12/18 00:03 00:08 00:13 00:18 Pulse 83 94 85 89 Pulse Ox 95 95 94 95 12/12/18 12/12/18 12/12/18 00:23 00:30 00:38 Pulse 76 79 B/P (MAP) 114/75 (88) Pulse Ox 96 96 Physical Exam Gen.: Alert, distress because of pain ENT: Soft Without active bleeding where her to wisdom teeth and second molars were removed. She has trouble opening her jaw because of the pain. Otherwise normal oral mucosa. Medical Decision Making ED Course/Re-evaluation ED Course Toradol intramuscular injection 60 mg given and tramadol given. Also sent home with take-home packs of both of these as well as prescriptions. Decision to Disposition Date: Dec 11, 2018 Decision to Disposition Time: 23:53 Depart Departure Latest Vital Signs Vital Signs Date Time Temp Pulse Resp B/P (MAP) Pulse Ox O2 Delivery O2 Flow Rate FiO2 12/12/18 00:38 79 96 12/12/18 00:30 114/75 (88) 12/11/18 23:31 98.1 18 Room Air Impression: Primary Impression: Pain, dental Condition: Improved Disposition: HOME OR SELF-CARE Referrals: BLADIMIR MARTIN DO (PCP) New Scripts Ketorolac Tromethamine (KETOROLAC TROMETHAMINE) 10 Mg Tab 10 MG PO Q6H PRN for PAIN, #12 TAB 0 Refills Prov: DONNA CHESTER MD 12/11/18 Tramadol Hcl (TRAMADOL HCL) 50 Mg Tablet 50 MG PO Q6H PRN for PAIN, #12 TAB 0 Refills Prov: DONNA CHESTER MD 12/11/18 Patient Instructions: Tooth Extraction (ED) Additional Instructions: Tramadol 50mg, one every 6 hours as needed for severe pain. Keep taking Tylenol as needed for pain. Instead of Ibuprofen, we will have you take Toradol 10mg, one every 6 hours as needed for pain for the next 3 days. If still having significant pain, please call and discuss further with your dentist or oral surgeon who performed the extractions. DONNA CHESTER MD Dec 11, 2018 23:46
[2018-12-11] MEDS ORDERED: traMADol 50 MG TAB PO ONE (23:55)
[2018-12-11] MEDS ORDERED: TRAM-420 PO (23:55)
[2018-12-11] MEDS ORDERED: KETOROLAC TROM 10 MG TAB TH PO ONE (23:55)
[2018-12-11] MEDS ORDERED: traMADol 50 MG TAB TH 2 TAB/BOTTLE PO ONE (23:55)
[2018-12-11] MEDS ORDERED: KETOROLAC 60 MG/2 ML VIAL IM ONE (23:55)
[2018-12-11] MEDS ORDERED: KET10 PO (23:56)
[2018-12-12 00:30] VITALS: BP 114/75
== END 2018-12-12 00:40 | disposition home or self-care (01) ==
LOC: ER 23:42
DX: K08.89 Other specified disorders of teeth and supporting structures (principal)
CPT/HCPCS: 96372; 99283; C9399; J1885

== ENCOUNTER 2018-12-16 07:53 | Emergency (ER) | payer MEDICAID ==
[2018-05-06 00:30] VITALS: Wt 72.6 kg
[~2018-12-16 07:53] MED LIST changes: +KET10 PO
[2018-12-16 08:01] VITALS: BP 144/85
[2018-12-16] MEDS ORDERED: KET10 PO (08:11)
--- NOTE | 2018-12-16 08:11 | ER Report ---
History and Physical Time Seen By MD: 08:05 Hx. of Stated Complaint: patient had 4 teeth pulled on Tuesday. Has severe amount of pain and thinks she may have dry socket HPI/ROS CHIEF COMPLAINT: Dental pain HISTORY OF PRESENT ILLNESS: 23-year-old female currently on an ED care plan for overuse of narcotics returns emergency department with complaint of dental pain. Patient was seen here several days prior to this presentation I with a complaint of post extraction dental pain most likely dry socket was placed on anti- inflammatory medications and evaluated and sent home returns again with the same complaint has not seen a dentist since her initial visit and comes in on a Tuesday complaining the dental office is not open even though she had not gone to the dentist any other day in between the 2 ER visits. Patient states that the pain is in the upper posterior wisdom teeth were extracted were extracted. Patient has no nausea vomiting diarrhea fever chills or additional complaints noted REVIEW OF SYSTEMS: Respiratory: No cough, no dyspnea. Cardiovascular: No chest pain, no palpitations. Gastrointestinal: No vomiting, no abdominal pain. Musculoskeletal: No back pain. Remainder of the 14 system rev: Yes Allergies: Coded Allergies: No Known Drug Allergies (Unverified , 10/19/17) Home Meds Active Scripts Ketorolac Tromethamine (KETOROLAC TROMETHAMINE) 10 Mg Tab, 10 MG PO Q6H PRN for PAIN, #12 TAB 0 Refills Prov:DONNA CHESTER MD 12/11/18 Tramadol Hcl (TRAMADOL HCL) 50 Mg Tablet, 50 MG PO Q6H PRN for PAIN, #12 TAB 0 Refills Prov:DONNA CHESTER MD 12/11/18 Prednisone (PREDNISONE) 20 Mg Tablet, 20 MG PO QDAY for reduce lung inflammation, #9 2 by mouth daily for 3 days then 1 by mouth daily for 3 days Prov:KISHA ROJAS DO 11/05/18 Hydrocodone Bit/Acetaminophen (HYDROCODON-ACETAMINOPHEN 5-325) 1 Each Tablet, 1- 2 EACH PO Q6H PRN for PAIN, #20 TAB 0 Refills Prov:NIELS PERRY MD 05/07/18 Ibuprofen (IBUPROFEN) 800 Mg Tablet, 1 TAB PO Q8H PRN for pain, #30 TAB 0 Refills TAKE WITH FOOD EVERY 8 HOURS Prov:BRYANT LOMAX MD 05/06/18 Famotidine (PEPCID) 20 Mg Tablet, 20 MG PO QDAY, #10 TAB Prov:DIEGOMALENA CUEVASIngrid Mensah PA-C 10/19/17 Reported Medications Nitrofurantoin Monohyd/M-Cryst (MACROBID 100 MG CAPSULE) 100 Mg Capsule, 100 MG PO BID for 7 Days, #14 CAPSULE 05/03/18 Vits W-Ca,Fe,Fa(<1MG) ( VITAMINS) 1 Each Tablet, 1 EACH PO DAILY, TAB 05/03/18 Albuterol Sulfate 90 Mcg/Act (PROAIR HFA 90 MCG/ACT) 8.5 Gm Hfa.aer.ad, 1-2 PUFF IH 3-4XD, INHALER 04/25/17 Fluticasone/Salmeterol (ADVAIR 100-50 DISKUS) 1 Each Disk.w.dev, 1 EACH IH BID 04/18/17 Reviewed Nurses Notes: Yes Old Medical Records Reviewed: Yes Hx Smoking: Yes Smoking Status: Former Smoker Exposure to Second Hand Smoke?: No Hx Substance Use Disorder: No Hx Alcohol Use: No Constitutional Vital Sign - Last 24 Hours 12/16/18 08:01 Temp 98.8 Pulse 80 Resp 16 B/P (MAP) 144/85 Pulse Ox 96 O2 Delivery Room Air Physical Exam General appearance: Alert no distress. Respiratory: Chest is non tender, lungs are clear to auscultation. Cardiac: Regular rate and rhythm [ ] Oral examination patient has no obvious signs of infection or gingivitis indication for antibiotic no uvular deviation no posterior pharyngeal erythema no tracheal deviation no lymphadenopathy noted. DIFFERENTIAL DIAGNOSIS: After history and physical exam differential diagnosis was considered for dental pain Medical Decision Making ED Course/Re-evaluation ED Course ED course examination is consistent with posterior upper relief of wisdom teeth. No sign of infections no indication for any antibodies be given at this time I did explain that she does need to return to her dental office recommending that she returns on Tuesday we'll give her some nonnarcotic anti-inflammatory and pain medication Toradol for use over the weekend and follow up accordingly no indication for any additional treatment at this time Decision to Disposition Date: December 16, 2018 Decision to Disposition Time: 08:10 Depart Departure Latest Vital Signs Vital Signs Date Time Temp Pulse Resp B/P (MAP) Pulse Ox O2 Delivery O2 Flow Rate FiO2 12/16/18 08:01 98.8 80 16 144/85 96 Room Air Impression: Primary Impression: Pain, dental Condition: Condition Unchanged Disposition: HOME OR SELF-CARE Referrals: BLADIMIR MARTIN DO (PCP) 5 Days New Scripts Ketorolac Tromethamine (KETOROLAC TROMETHAMINE) 10 Mg Tab 10 MG PO Q6H PRN for MILD PAIN, #12 TAB Prov: JESSIKA ANDUJAR MD 12/16/18 Patient Instructions: Dental Caries (DC) JESSIKA ANDUJAR MD December 16, 2018 08:11
[2018-12-16] MEDS ORDERED: KETOROLAC TROM 10MG TAB PO ONE (08:15)
== END 2018-12-16 08:25 | disposition home or self-care (01) ==
LOC: ER 08:08
DX: K08.89 Other specified disorders of teeth and supporting structures (principal)

== ENCOUNTER 2019-01-20 05:24 | Inpatient (IN) | payer MEDICAID ==
[2018-05-06 00:30] VITALS: Wt 81.2 kg
--- NOTE | 2019-01-20 05:36 | ER Report ---
History and Physical Time Seen By MD: 05:36 (DONNA ALBARRAN MD) Time Seen By MD: 07:00 (BHARAT HAIR DO) HPI/ROS CHIEF COMPLAINT: short of breath HISTORY OF PRESENT ILLNESS: This is a 23 year old female. She has been sick for a couple of weeks now. She has been to her PCP several times. She is on inhaled steroids, Albuterol inhalers/nebulizers, and allergy medications. Had her asthma fairly well controlled over the last several months. Has been on an antibiotic, Azithromycin, which she finished 2 days ago. Tonight breathing has continued to worsen, to the point where she used her albuterol and no relief. She is coughing, nonproductive. Feels very tight in the chest. No fevers noted. Not on oral steroids at this time. (DONNA ALBARRAN MD) HPI/ROS Please see Dr. Albarran's note (BHARAT HAIR DO) Allergies: Coded Allergies: No Known Drug Allergies (Unverified , 01/20/19) Home Meds Reported Medications Fluticasone Prop 50 Mcg Ns (FLONASE 50 MCG NS) 16 Gm [place].susp, 2 SPRAYS NS QDAY, BOT 01/20/19 Montelukast Sodium (SINGULAIR) 10 Mg Tablet, 1 TAB PO QDAY, TAB 01/20/19 Alprazolam 0.5 Mg Tab (ALPRAZOLAM 0.5 MG TAB) 0.5 Mg Tablet, 2 MG PO BID, TAB 01/20/19 Albuterol Sulfate 90 Mcg/Act (PROAIR HFA 90 MCG/ACT) 8.5 Gm Hfa.aer.ad, 1-2 PUFF IH 3-4XD, INHALER 04/25/17 Fluticasone/Salmeterol (ADVAIR 100-50 DISKUS) 1 Each Disk.w.dev, 1 EACH IH BID 04/18/17 Discontinued Reported Medications Nitrofurantoin Monohyd/M-Cryst (MACROBID 100 MG CAPSULE) 100 Mg Capsule, 100 MG PO BID for 7 Days, #14 CAPSULE 05/03/18 Vits W-Ca,Fe,Fa(<1MG) ( VITAMINS) 1 Each Tablet, 1 EACH PO DAILY, TAB 05/03/18 Discontinued Scripts Ketorolac Tromethamine (KETOROLAC TROMETHAMINE) 10 Mg Tab, 10 MG PO Q6H PRN for MILD PAIN, #12 TAB Prov:JESSIKA ANDUJAR MD 12/16/18 Ketorolac Tromethamine (KETOROLAC TROMETHAMINE) 10 Mg Tab, 10 MG PO Q6H PRN for PAIN, #12 TAB 0 Refills Prov:DONNA ALBARRAN MD 12/11/18 Tramadol Hcl (TRAMADOL HCL) 50 Mg Tablet, 50 MG PO Q6H PRN for PAIN, #12 TAB 0 Refills Prov:DONNA ALBARRAN MD 12/11/18 Prednisone (PREDNISONE) 20 Mg Tablet, 20 MG PO QDAY for reduce lung inflammation, #9 2 by mouth daily for 3 days then 1 by mouth daily for 3 days Prov:KISHA ROJAS DO 11/05/18 Hydrocodone Bit/Acetaminophen (HYDROCODON-ACETAMINOPHEN 5-325) 1 Each Tablet, 1- 2 EACH PO Q6H PRN for PAIN, #20 TAB 0 Refills Prov:NIELS PERRY MD 05/07/18 Ibuprofen (IBUPROFEN) 800 Mg Tablet, 1 TAB PO Q8H PRN for pain, #30 TAB 0 R efills TAKE WITH FOOD EVERY 8 HOURS Prov:BRYANT LOMAX MD 05/06/18 Famotidine (PEPCID) 20 Mg Tablet, 20 MG PO QDAY, #10 TAB Prov:HELIO JAMES PA-C 10/19/17 Reviewed Nurses Notes: Yes (DONNA ALBARRAN MD) Hx Smoking: Yes Smoking Status: Former Smoker Exposure to Second Hand Smoke?: No Hx Substance Use Disorder: No Hx Alcohol Use: No (DONNA ALBARRAN MD) Constitutional Vital Sign - Last 24 Hours 01/20/19 01/20/19 01/20/19 01/20/19 05:24 05:30 05:39 05:50 Temp 98.3 Pulse 117 103 87 Resp 30 20 B/P (MAP) 138/90 124/86 (99) Pulse Ox 96 97 O2 Delivery Room Air 01/20/19 01/20/19 01/20/19 01/20/19 05:50 05:54 05:56 06:00 Pulse 85 92 Resp 20 B/P (MAP) 114/90 (98) Pulse Ox 95 O2 Delivery Room Air 6/801/20/19 01/20/19 01/20/19 06:09 06:15 06:30 06:35 Pulse 81 87 B/P (MAP) 132/72 (92) Pulse Ox 98 98 O2 Flow Rate 8.0 01/20/19 01/20/19 01/20/19 06:50 07:00 07:05 Pulse 84 91 B/P (MAP) 116/66 (83) Pulse Ox 98 97 (BHARAT HAIR DO) Physical Exam General Appearance: The patient is alert. Acute distress and panic from feeling like she cannot breath. Eyes: Pupils are equal, round. Reactive to light. No pallor, injection or icterus. Extraocular movements are intact. ENT: Mucous membranes are moist. Normal oral mucosa. Posterior oropharynx has erythema and post nasal drainage. Significant rhinorrhea. TMs with bilateral effusions, but normal color without erythema. Neck: Supple and non tender. Has shotty cervical lymphadenopathy. Respiratory: Lungs have extensive rhonchi and expiratory wheezing. Having shallow breathing, rapid, when she tries to take deeper breaths, has worsening of nonproductive cough. Cardiovascular: Mild tachycardia, regular rhythm. No murmurs, gallops or rubs. Normal capillary refill. Gastrointestinal: Abdomen is soft and non tender. Nondistended. Normal active bowel sounds. Neurological: Alert and oriented x3. No focal neurologic deficits Skin: Warm and dry. Musculoskeletal: Extremities are nontender. DIFFERENTIAL DIAGNOSIS: After history and physical exam, differential diagnosis was considered for shortness of breath including but not limited to pulmonary infectious process, asthma exacerbation. (DONNA ALBARRAN MD) Physical Exam Please see Dr. Albarran note (BHARAT HAIR DO) Medical Decision Making Data Points Result Diagram: 01/20/1933 01/20/19 0533 Laboratory Hematology Test 01/20/19 05:33 Red Blood Count 4.86 M/uL (4.17-5.56) Mean Corpuscular Volume 89.6 fL (80.0-96.0) Mean Corpuscular Hemoglobin 31.1 pg (26.0-33.0) Mean Corpuscular Hemoglobin Concent 34.7 g/dL (32.0-36.0) Red Cell Distribution Width 12.6 % (11.5-14.5) Mean Platelet Volume 9.1 fL (7.2-11.1) Neutrophils (%) (Auto) 72.0 % (39.4-72.5) Lymphocytes (%) (Auto) 18.3 % (17.6-49.6) Monocytes (%) (Auto) 7.6 % (4.1-12.4) Eosinophils (%) (Auto) 1.8 % (0.4-6.7) Basophils (%) (Auto) 0.3 % (0.3-1.4) Nucleated RBC Relative Count (auto) 0.1 /100WBC Neutrophils # (Auto) 7.3 K/uL (2.0-7.4) Lymphocytes # (Auto) 1.9 K/uL (1.3-3.6) Monocytes # (Auto) 0.8 K/uL (0.3-1.0) Eosinophils # (Auto) 0.2 K/uL (0.0-0.5) Basophils # (Auto) 0.0 K/uL (0.0-0.1) Nucleated RBC Absolute Count (auto) 0.01 K/uL Sodium Level 144 mmol/L (137-145) Potassium Level 3.2 mmol/L (3.5-5.0) Chloride Level 109 mmol/L (98-107) Carbon Dioxide Level 20 mmol/L (22-31) Blood Urea Nitrogen 13 mg/dl (7-18) Creatinine 0.70 mg/dl (0.52-1.04) Glomerular Filtration Rate Calc > 60.0 Random Glucose 124 mg/dl (75-110) Calcium Level 9.3 mg/dl (8.4-10.2) Total Bilirubin 0.7 mg/dl (0.2-1.3) Aspartate Amino Transf (AST/SGOT) 25 U/L (0-35) Alanine Aminotransferase (ALT/SGPT) 33 U/L (0-56) Alkaline Phosphatase 88 U/L (0-126) Total Protein 7.4 g/dl (6.3-8.2) Albumin 4.5 g/dl (3.5-5.0) Chemistry Test 01/20/19 05:33 White Blood Count 10.2 k/uL (4.5-11.0) Red Blood Count 4.86 M/uL (4.17-5.56) Hemoglobin 15.1 g/dL (12.0-16.0) Hematocrit 43.6 % (34.0-47.0) Mean Corpuscular Volume 89.6 fL (80.0-96.0) Mean Corpuscular Hemoglobin 31.1 pg (26.0-33.0) Mean Corpuscular Hemoglobin Concent 34.7 g/dL (32.0-36.0) Red Cell Distribution Width 12.6 % (11.5-14.5) Platelet Count 228 K/uL (150-450) Mean Platelet Volume 9.1 fL (7.2-11.1) Neutrophils (%) (Auto) 72.0 % (39.4-72.5) Lymphocytes (%) (Auto) 18.3 % (17.6-49.6) Monocytes (%) (Auto) 7.6 % (4.1-12.4) Eosinophils (%) (Auto) 1.8 % (0.4-6.7) Basophils (%) (Auto) 0.3 % (0.3-1.4) Nucleated RBC Relative Count (auto) 0.1 /100WBC Neutrophils # (Auto) 7.3 K/uL (2.0-7.4) Lymphocytes # (Auto) 1.9 K/uL (1.3-3.6) Monocytes # (Auto) 0.8 K/uL (0.3-1.0) Eosinophils # (Auto) 0.2 K/uL (0.0-0.5) Basophils # (Auto) 0.0 K/uL (0.0-0.1) Nucleated RBC Absolute Count (auto) 0.01 K/uL Glomerular Filtration Rate Calc > 60.0 Calcium Level 9.3 mg/dl (8.4-10.2) Total Bilirubin 0.7 mg/dl (0.2-1.3) Aspartate Amino Transf (AST/SGOT) 25 U/L (0-35) Alanine Aminotransferase (ALT/SGPT) 33 U/L (0-56) Alkaline Phosphatase 88 U/L (0-126) Total Protein 7.4 g/dl (6.3-8.2) Albumin 4.5 g/dl (3.5-5.0) (BHARAT HAIR DO) ED Course/Re-evaluation Clinical Indication for ER IV: IV Access (DONNA ALBARRAN MD) ED Course I assumed patient care from Dr. Albarran at shift change at 7:00. Patient was given magnesium 2 g IV, CT PE was completed to rule out pulmonary embolism. I discussed the patient with Dr. Matthews who accepted the patient to the hosp italist service. Patient was hemodynamically stable at time of admission. Decision to Disposition Date: Jan 20, 2019 Decision to Disposition Time: 07:47 (BHARAT HAIR DO) Depart Departure Latest Vital Signs Vital Signs Date Time Temp Pulse Resp B/P (MAP) Pulse Ox O2 Delivery O2 Flow Rate FiO2 01/20/19 07:05 91 97 01/20/19 07:00 116/66 (83) 01/20/19 06:15 8.0 01/20/19 05:56 20 01/20/19 05:50 Room Air 01/20/19 05:24 98.3 (BHARAT HAIR DO) Impression: Primary Impression: Asthma with exacerbation Condition: Improved Disposition: Admitted from ER Referrals: BLADIMIR MARTIN DO (PCP) DONNA ALBARRAN MD Jan 20, 2019 05:36 BHARAT HAIR DO Jan 20, 2019 07:45
[2019-01-20] MEDS ORDERED: ALBUTEROL/IPRATROPIUM 3 ML NEB NEB ONE (05:45)
[2019-01-20] MEDS ORDERED: BENZONATATE 100 MG CAP PO ONE (05:45)
[2019-01-20] MEDS ORDERED: methylPREDNIS SUCC 125 MG/2ML IVP ONE (05:45)
[2019-01-20 05:47] LABS: PLATELET COUNT, AUTOMATED 228 K/uL (150-450)
[2019-01-20] MEDS ORDERED: ALBUTEROL 2.5 MG/3 ML NEB NEB ONE (05:55)
[2019-01-20] MEDS ORDERED: LORazepam 2 MG/ML VIAL IVP ONE (06:15)
--- NOTE | 2019-01-20 06:40 | RADIOLOGY IMAGING REPORT ---
FACILITY: [facility] [place] PATIENT NAME: Tami Villasenor : 1995 MR: [id number] V: [id number] EXAM DATE: ORDERING PHYSICIAN: DONNA CHESTER TECHNOLOGIST: Location: [facility] Patient: Tami Villasenor : 1995 Visit/Account:[id number] Date of Sevice: 01/20/2019 TWO VIEW CHEST 01/20/2019 5:41 AM. INDICATION: Cough, shortness of breath. COMPARISON: 04/25/2017. FINDINGS: Lungs are well-expanded. The lungs are clear. No pneumothorax or pleural effusion. Heart size is normal. IMPRESSION: No acute abnormality. Report Dictated By: Juan Manuel Zafar MD at 01/20/2019 6:34 AM Report E-Signed By: Juan Manuel Zafar MD at 01/20/2019 6:36 AM WSN:[id number]
[2019-01-20] MEDS ORDERED: KETOROLAC 30 MG/ML VIAL IVP ONE (06:45)
[2019-01-20] MEDS ORDERED: MAGNESIUM SUL* 2 GM/50 ML IVPB 50 ML IVPB ONE (07:15)
[2019-01-20] MEDS ORDERED: IOPAMIDOL 76% 100 ML INFUS BTL 100 ML ONE (07:40)
[2019-01-20] MEDS ORDERED: NS(*) 0.9% 50 ML BAG 50 ML ONE (07:41)
[2019-01-20] MEDS ORDERED: KETAMINE HCL-NS 50 MG/5 ML SYR IVP ONE (08:00)
[2019-01-20 08:29] VITALS: BP 120/73
--- NOTE | 2019-01-20 08:39 | RADIOLOGY IMAGING REPORT ---
FACILITY: [facility] PATIENT NAME: Tami Villasenor : 1995 MR: [id number] V: [id number] EXAM DATE: ORDERING PHYSICIAN: DONNA CHESTER TECHNOLOGIST: Location: [facility] [place] Patient: Tami Villasenor : 1995 Visit/Account:[id number] Date of Sevice: 01/20/2019 CT angiogram chest with contrast Indication: Short of breath. Evaluate for pulmonary embolism. Comparison: None available. Technique: Axial CT images are obtained through the chest after administration of 75 mL Isovue 370 IV contrast. Reformatted coronal and sagittal images were reviewed as well as coronal MIP images. One o f the following dose optimization techniques was utilized in the performance of this exam: Automated exposure control; adjustment of the mA and/or kV according to the patient's size; or use of an iterat vern reconstruction technique. Specific details can be referenced in the facility's radiology CT exa m operational policy. FINDINGS: There is no evidence of acute pulmonary embolism. There is no axillary adenopathy. Minimal residual thymic tissue is seen in the anterior-superior medi astinum. No hilar or mediastinal adenopathy. No pericardial effusion. No pleural effusion. Minimal dependent atelectasis involves the lower lobes. Lungs are otherwise clear and are well aerate d. No focal confluent infiltrate. No air bronchograms. Views of the thoracic spine appear normal. Limited views of the upper abdomen are normal. IMPRESSION: 1. No evidence of acute pulmonary embolism. 2. Minimal atelectasis. Lungs otherwise clear and appear unremarkable. Report Dictated By: Evens Arellano at 01/20/2019 8:30 AM Report E-Signed By: Evens Arellano at 01/20/2019 8:35 AM WSN:[id number]
[2019-01-20] MEDS ORDERED: FLUT16SP19 NS (08:41)
[2019-01-20] MEDS ORDERED: ALPR-448 PO (08:41)
[2019-01-20] MEDS ORDERED: MONT10TA PO (08:41)
[2019-01-20] MEDS ORDERED: ALBUTEROL 2.5 MG/3 ML NEB NEB PRN (09:50)
[2019-01-20] MEDS: methylPREDNIS SUCC 125 MG/2ML IVP SCH ×2 (11:46→19:52)
[2019-01-20] MEDS: GUAIFENESIN/DEXTROMETHORPHAN 5 ML PO PRN ×2 (11:46→19:59)
[2019-01-20] MEDS: IBUPROFEN 600 MG TAB PO PRN ×2 (11:46→19:51)
[2019-01-20] MEDS: BENZONATATE 100 MG CAP PO PRN (11:46)
[2019-01-20] MEDS: FLUTICASONE PROP 0.05% 16 GM SCH (11:50)
[2019-01-20] MEDS: ALBUTEROL/IPRATROPIUM 3 ML NEB NEB SCH ×2 (12:27→16:57)
[2019-01-20] MEDS: ALPRAZolam 1 MG TAB PO PRN (12:51)
--- NOTE | 2019-01-20 13:09 | History & Physical ---
History of Present Illness Chief Complaint The patient is a 23 year old female with PMH significant for asthma who presents with shortness of breath for several days but worsening acutely last evening. History of Present Illness The patient states she has been having respiratory symptoms for days to weeks. She has 3 children and they have been ill as well. She has seen her PCP several times and just finished a course of azithromycin and a steroid taper. The evening prior to admission, her breathing worsened and albuterol was not helping at all. She presented to [facility] ER for evaluation. History Problems: (1) Asthma Status: Chronic (2) Anxiety and depression Status: Chronic (3) Status post vaginal delivery Status: Resolved Comment: 3 children Home Meds Reported Medications Fluticasone Prop 50 Mcg Ns (FLONASE 50 MCG NS) 16 Gm [place].susp, 2 SPRAYS NS QDAY, BOT 01/20/19 Montelukast Sodium (SINGULAIR) 10 Mg Tablet, 1 TAB PO QDAY, TAB 01/20/19 Alprazolam 0.5 Mg Tab (ALPRAZOLAM 0.5 MG TAB) 0.5 Mg Tablet, 2 MG PO BID, TAB 01/20/19 Albuterol Sulfate 90 Mcg/Act (PROAIR HFA 90 MCG/ACT) 8.5 Gm Hfa.aer.ad, 1-2 PUFF IH 3-4XD, INHALER 04/25/17 Fluticasone/Salmeterol (ADVAIR 100-50 DISKUS) 1 Each Disk.w.dev, 1 EACH IH BID 04/18/17 Discontinued Reported Medications Nitrofurantoin Monohyd/M-Cryst (MACROBID 100 MG CAPSULE) 100 Mg Capsule, 100 MG PO BID for 7 Days, #14 CAPSULE 05/03/18 Vits W-Ca,Fe,Fa(<1MG) ( VITAMINS) 1 Each Tablet, 1 EACH PO DAILY, TAB 05/03/18 Discontinued Scripts Ketorolac Tromethamine (KETOROLAC TROMETHAMINE) 10 Mg Tab, 10 MG PO Q6H PRN for MILD PAIN, #12 TAB Prov:JESSIKA ANDUJAR MD 12/16/18 Ketorolac Tromethamine (KETOROLAC TROMETHAMINE) 10 Mg Tab, 10 MG PO Q6H PRN for PAIN, #12 TAB 0 Refills Prov:DONNA CHESTER MD 12/11/18 Tramadol Hcl (TRAMADOL HCL) 50 Mg Tablet, 50 MG PO Q6H PRN for PAIN, #12 TAB 0 Refills Prov:DONNA CHESTER MD 12/11/18 Prednisone (PREDNISONE) 20 Mg Tablet, 20 MG PO QDAY for reduce lung inflammation, #9 2 by mouth daily for 3 days then 1 by mouth daily for 3 days Prov:KISHA ROJAS DO 11/05/18 Hydrocodone Bit/Acetaminophen (HYDROCODON-ACETAMINOPHEN 5-325) 1 Each Tablet, 1- 2 EACH PO Q6H PRN for PAIN, #20 TAB 0 Refills Prov:NIELS PERRY MD 05/07/18 Ibuprofen (IBUPROFEN) 800 Mg Tablet, 1 TAB PO Q8H PRN for pain, #30 TAB 0 Refi lls TAKE WITH FOOD EVERY 8 HOURS Prov:BRYANT LOMAX MD 05/06/18 Famotidine (PEPCID) 20 Mg Tablet, 20 MG PO QDAY, #10 TAB Prov:HELIO JAMES PA-C 10/19/17 Allergies: Coded Allergies: No Known Drug Allergies (Unverified , 01/20/19) Other Social/Family Hx The patient is and lives with her and 3 children. She is currently unemployed. FH is noncontributory. Hx Smoking: Yes Smoking Status: Former Smoker Exposure to Second Hand Smoke?: No Hx Alcohol Use: No Hx Substance Use Disorder: No History of IV Drug Use: No Review of Systems All Systems Reviewed/Normal: Yes, Except as Noted Constitutional: Other (Body aches.) Respiratory: Shortness of Breath, Cough, Wheezing Musculoskeletal: Pain (Body aches.) Psychiatric: Anxiety Exam Vital Signs Vital Signs Date Time Temp Pulse Resp B/P (MAP) Pulse Ox O2 Delivery O2 Flow Rate FiO2 01/20/19 12:34 80 16 01/20/19 12:25 96 Room Air 01/20/19 08:29 97.9 120/73 (89) 01/20/19 06:15 8.0 General Appearance: Alert, Awake, No Acute Distress Neuro: No Gross deficits Cardiovascular: Regular Rate and Rhythm Respiratory: Other (Decreased BS throughout but very poor effort. No rales, rhonchi or wheezing.) GI: Abd Soft and Non-Tender Extremities: Warm, Perfused Integumentary: Other (Scattered tattoos.) Psych: Alert & Oriented X3, Appropriate Mood & Affect Medical Decision Making Data Points Result Diagram: 01/20/1953201/20/19532 Item Value Date Time Total Bilirubin 0.7 mg/dl 01/20/19532 Aspartate Amino Transf (AST/SGOT) 25 U/L 01/20/19532 Alanine Aminotransferase (ALT/SGPT) 33 U/L 01/20/19532 Alkaline Phosphatase 88 U/L 01/20/19532 Total Protein 7.4 g/dl 01/20/19532 Albumin 4.5 g/dl 01/20/19532 Human Chorionic Gonadotropin, Qual Negative 01/20/19532 Pre-Admit Course ED Medications Magnesium, Toradol, Ativan, SoluMedrol, Duoneb and albuterol Mindy diop Per anna Medical Record Review: Yes Assessment and Plan Problems: (1) Asthma with exacerbation Status: Acute Assessment & Plan: Admit, continue IV steroids, nebulizers with Duoneb scheduled and prn albuterol. Magnesium given in ER. Continuous pulse oximetry. CXR negative for infiltrate and the patient just finished a course of azithromycin so will not start antibiotics at this time. (2) Hypokalemia Status: Acute Assessment & Plan: Will start oral replacement. Repeat BMP in am. (3) Anxiety and depression Status: Chronic Assessment & Plan: The patient takes alprazolam prn at home per her report. Time Spent on Plan of Care: < 30 min Venous Thromboembolism Antithrombotics Is Pt On Any Antithrombotics?: Yes Exam Sepsis Risk: No Definite Risk CEE MAR MD Jan 20, 2019 13:09
[2019-01-20] MEDS: POTASSIUM CHL 10 MEQ TABCR PO SCH ×2 (14:12→17:51)
[2019-01-20] MEDS: ACETAMINOPHEN 325 MG TAB PO PRN ×2 (14:12→20:13)
[2019-01-20 16:28] VITALS: BP 105/78
[2019-01-20 19:37] VITALS: BP 132/74
[2019-01-20] MEDS ORDERED: ALPRAZolam 1 MG TAB PO ONE (20:30)
[2019-01-20 23:03] VITALS: BP 110/62
[2019-01-21] MEDS: ACETAMINOPHEN 325 MG TAB PO PRN ×3 (02:13→16:14)
[2019-01-21] MEDS: GUAIFENESIN/DEXTROMETHORPHAN 5 ML PO PRN ×3 (03:56→20:06)
[2019-01-21] MEDS: IBUPROFEN 600 MG TAB PO PRN ×3 (03:56→20:05)
[2019-01-21] MEDS: methylPREDNIS SUCC 125 MG/2ML IVP SCH (03:56)
[2019-01-21 03:59] VITALS: BP 115/75
[2019-01-21] MEDS: ALBUTEROL/IPRATROPIUM 3 ML NEB NEB SCH ×3 (05:53→16:50)
[2019-01-21 08:24] VITALS: BP 106/68
[2019-01-21] MEDS ORDERED: MONTELUKAST SODIUM 10 MG TAB PO SCH (09:00)
[2019-01-21] MEDS: POTASSIUM CHL 10 MEQ TABCR PO SCH ×2 (09:08→17:00)
[2019-01-21] MEDS ORDERED: MONTELUKAST SODIUM 10 MG TAB PO ONE (09:20)
[2019-01-21] MEDS: ENOXAPARIN 40 MG/0.4ML SYR SC SCH (09:20)
[2019-01-21] MEDS: ALPRAZolam 1 MG TAB PO PRN ×2 (09:21→21:00)
[2019-01-21] MEDS: FLUTICASONE PROP 0.05% 16 GM SCH (09:26)
[2019-01-21] MEDS: predniSONE 20 MG TAB PO SCH (11:20)
[2019-01-21 11:22] VITALS: BP 111/62
--- NOTE | 2019-01-21 11:56 | Hospitalist Progress Note ---
Subjective Progress Notes Subjective She reports continued SOB, but overall improvement. Physical Exam Vital Signs Date Time Temp Pulse Resp B/P (MAP) Pulse Ox O2 Delivery O2 Flow Rate FiO2 01/21/19 11:22 96 111/62 (78) 95 Room Air 01/21/19 08:24 98.1 16 01/20/19 19:37 8.0 Intake and Output 01/21/19 07:00 Intake Total 810 ml Balance 810 ml Intake Oral 760 ml IV Total 50 ml # Voids 2 General Appearance: Alert, Awake, No Acute Distress Respiratory: Clear to Auscultation (Taking shallow breaths) Result Diagram: 01/20/19 0533 01/21/19 0530 Assessment and Plan Problems: (1) Asthma with exacerbation Status: Acute Assessment & Plan: She presented with SOB for a couple of days prior to admission. CXR negative for infiltrate and the patient just finished a course of azithromycin. Afebrile. On RA. Lungs clear. Will switch to prednisone from IV methylprednisolone. (2) Anxiety and depression Status: Chronic Assessment & Plan: The patient takes alprazolam prn at home per her report. (3) Hypokalemia Status: Resolved Exam Sepsis Risk: No Definite Risk ALIZA LIN MD Jan 21, 2019 11:56
[2019-01-21 15:13] VITALS: BP 110/63
[2019-01-21] MEDS: BENZONATATE 100 MG CAP PO PRN (16:14)
[2019-01-21 19:58] VITALS: BP 126/72
[2019-01-22 03:31] VITALS: BP 129/87
[2019-01-22] MEDS: ALBUTEROL/IPRATROPIUM 3 ML NEB NEB SCH (05:51)
[2019-01-22 07:43] VITALS: BP 119/80
[2019-01-22] MEDS: predniSONE 20 MG TAB PO SCH (08:47)
[2019-01-22] MEDS: GUAIFENESIN/DEXTROMETHORPHAN 5 ML PO PRN (08:47)
[2019-01-22] MEDS: ENOXAPARIN 40 MG/0.4ML SYR SC SCH (08:48)
[2019-01-22] MEDS: FLUTICASONE PROP 0.05% 16 GM SCH (08:48)
[2019-01-22] MEDS ORDERED: MONTELUKAST SODIUM 10 MG TAB PO SCH (09:00)
[2019-01-22] MEDS ORDERED: PRED20TA6 PO (09:29)
[2019-01-22] MEDS: ALPRAZolam 1 MG TAB PO PRN (09:32)
--- NOTE | 2019-01-22 09:32 | Hospitalist Depart ---
Discharge Summary Reason for Hosp/Final Diag: (1) Asthma with exacerbation Status: Acute Hospital Course & Plan: She presented with SOB for a couple of days prior to admission. CXR negative for infiltrate and the patient just finished a course of azithromycin. Afebrile. On RA. Lungs clear. She was initially placed on IV methylprednisolone and then transitioned to oral Prednisone. She will complete 5 day steroid burst. She will follow up with PCP in one week. (2) Anxiety and depression Status: Chronic Hospital Course & Plan: The patient takes alprazolam prn at home per her report. (3) Hypokalemia Status: Resolved Departure Latest Vital Signs Vital Signs 01/20/19 01/22/19 01/22/19 19:37 07:43 09:00 Temp 98.2 Pulse 86 Resp 16 B/P (MAP) 119/80 (93) Pulse Ox 96 O2 Delivery Room Air O2 Flow Rate 8.0 Weight (Pounds): 179 Result Diagram: 01/20/1953201/21/19529 Condition: Improved Discharge: Home, Self Care Discharge Instructions Home Meds Active Scripts Prednisone (PREDNISONE) 20 Mg Tablet, 40 MG PO QDAY for 2 Days, #4 TAB Prov:KADEEM LIANG CRACKER SPRAYER 01/22/19 Reported Medications Fluticasone Prop 50 Mcg Ns (FLONASE 50 MCG NS) 16 Gm [place].susp, 2 SPRAYS NS QDAY, BOT 01/20/19 Montelukast Sodium (SINGULAIR) 10 Mg Tablet, 1 TAB PO QDAY, TAB 01/20/19 Alprazolam 0.5 Mg Tab (ALPRAZOLAM 0.5 MG TAB) 0.5 Mg Tablet, 2 MG PO BID, TAB 01/20/19 Albuterol Sulfate 90 Mcg/Act (PROAIR HFA 90 MCG/ACT) 8.5 Gm Hfa.aer.ad, 1-2 PUFF IH 3-4XD, INHALER 04/25/17 Fluticasone/Salmeterol (ADVAIR 100-50 DISKUS) 1 Each Disk.w.dev, 1 EACH IH BID 04/18/17 Discontinued Reported Medications Nitrofurantoin Monohyd/M-Cryst (MACROBID 100 MG CAPSULE) 100 Mg Capsule, 100 MG PO BID for 7 Days, #14 CAPSULE 05/03/18 Vits W-Ca,Fe,Fa(<1MG) ( VITAMINS) 1 Each Tablet, 1 EACH PO CONNOR LY, TAB 05/03/18 Discontinued Scripts Ketorolac Tromethamine (KETOROLAC TROMETHAMINE) 10 Mg Tab, 10 MG PO Q6H PRN for MILD PAIN, #12 TAB Prov:JESSIKA ANDUJAR MD 12/16/18 Ketorolac Tromethamine (KETOROLAC TROMETHAMINE) 10 Mg Tab, 10 MG PO Q6H PRN for PAIN, #12 TAB 0 Refills Prov:DONNA CHESTER MD 12/11/18 Tramadol Hcl (TRAMADOL HCL) 50 Mg Tablet, 50 MG PO Q6H PRN for PAIN, #12 TAB 0 Refills Prov:DONNA CHESTER MD 12/11/18 Prednisone (PREDNISONE) 20 Mg Tablet, 20 MG PO QDAY for reduce lung inflammation, #9 2 by mouth daily for 3 days then 1 by mouth daily for 3 days Prov:KISHA ROJAS DO 11/05/18 Hydrocodone Bit/Acetaminophen (HYDROCODON-ACETAMINOPHEN 5-325) 1 Each Tablet, 1- 2 EACH PO Q6H PRN for PAIN, #20 TAB 0 Refills Prov:NIELS PERRY MD 05/07/18 Ibuprofen (IBUPROFEN) 800 Mg Tablet, 1 TAB PO Q8H PRN for pain, #30 TAB 0 Refills TAKE WITH FOOD EVERY 8 HOURS Prov:BRYANT LOMAX MD 05/06/18 Famotidine (PEPCID) 20 Mg Tablet, 20 MG PO QDAY, #10 TAB Prov:HELIO JAMES PA-C 10/19/17 Diet: Regular Activity: As Tolerated Special Instructions: Continue Prednisone until gone. Take medications as prescribed. Follow up with primary care provider in one week. Copies to: BALDIMIR MARTIN DO ; Venous Thromboembolism Antithrombotics Is Pt On Any Antithrombotics?: Yes KADEEM LIANG Jan 22, 2019 09:32
[2019-01-23] MEDS ORDERED: INFLUENZA VIRUS VAC 0.5ML SYR IM ONLY ONE (13:05)
== END 2019-01-22 09:55 | disposition home or self-care (01) | DRG 203 ==
LOC: ER 05:28 → MED 07:53
PROVIDERS: ADMIT Internal Medicine; ATTEND Internal Medicine
DX: J45.901 Unspecified asthma with (acute) exacerbation (principal); E87.6 Hypokalemia; F41.8 Other specified anxiety disorders; Z87.891 Personal history of nicotine dependence
CPT/HCPCS: 36415; 71046; 71275; 82040; 82247; 82310; 82374; 82435; 82565; 82947; 84075; 84132; 84155; 84295; 84450; 84460; 84520; 84703; 85025; 94640; 94644; 96365; 96375; 99285; J1650; J1885; J2060; J2930; J3475; J7050; J7512; J7613; Q9967

== ENCOUNTER 2019-01-28 00:34 | Day surgery (SDC) | payer MEDICAID ==
[2018-05-06 00:30] VITALS: BMI 34.6
[~2019-01-28 00:34] MED LIST changes: +ALPR-448 PO; +FLUT16SP19 NS; +MONT10TA PO
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
[2019-01-28] MEDS ORDERED: NS(*) 0.9% 1000 ML BAG 1,000 ML IV ONE (00:50)
[2019-01-28] MEDS ORDERED: ONDANSETRON 4 MG/2 ML VIAL IVP ONE ×2 (00:50→03:20)
--- NOTE | 2019-01-28 01:29 | RADIOLOGY IMAGING REPORT ---
FACILITY: [facility] PATIENT NAME: Tami Villasenor : 1995 MR: [id number] V: [id number] EXAM DATE: ORDERING PHYSICIAN: KISHA ROJAS TECHNOLOGIST: Location: [facility] Patient: Tami Villasenor : 1995 Visit/Account:[id number] Date of Sevice: 01/28/2019 Abdomen: Indication: Evaluation of rectal foreign body. Technique: A single frontal image of the lower abdomen and pelvis was obtained. Comparison: None. Findings: There is a partially opaque foreign body projected over the upper pelvic midline, compatibl e with the presence of intrarectal foreign body. The gastric pattern is unremarkable. There are no de finite signs of obstruction or free air. The skeletal and soft tissue structures are unremarkable. Impression: As above. Report Dictated By: Suleiman Ortega MD at 01/28/2019 1:21 AM Report E-Signed By: Suleiman Ortega MD at 01/28/2019 1:24 AM [id number]
[2019-01-28] MEDS ORDERED: KETAMINE HCL-NS 50 MG/5 ML SYR IVP ONE (01:30)
[2019-01-28] MEDS ORDERED: fentaNYL CITR 100 MCG/2 ML AMP IVP ONE (01:30)
[2019-01-28] MEDS ORDERED: KETAMINE HCL-NS 50 MG/5 ML SYR ONE (03:04)
[2019-01-28] MEDS ORDERED: fentaNYL CITR 100 MCG/2 ML AMP ONE ×2 (03:04→05:24)
[2019-01-28] MEDS ORDERED: LIDOCAINE MPF 1% 5 ML VIAL ONE (03:05)
[2019-01-28] MEDS ORDERED: ONDANSETRON 4 MG/2 ML VIAL ONE (03:05)
[2019-01-28] MEDS ORDERED: PROPOFOL EMUL(*) 10MG/ML 20 ML 20 ML ONE (03:05)
[2019-01-28] MEDS ORDERED: DEXAMETHASONE SOD PHOS 10MG/ML ONE (03:05)
[2019-01-28] MEDS ORDERED: FAMOTIDINE(*) 20MG/50ML PREMIX 50 ML IVPB ONE (03:10)
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
[2019-01-28] MEDS: NORMOSOL R SOLN(*) 1000 ML BAG 1,000 ML IV PRN ×2 (03:26→06:00)
--- NOTE | 2019-01-28 04:14 | Short(Outpt) Discharge Summary ---
Discharge Summary Reason for Hosp/Final Diag: (1) Rectal foreign body Status: Acute Hospital Course & Plan: 01/28/19: To OR for rectal exam under anesthesia with proctoscopy and rectal foreign body removal. Procedure/plan explained to the patient and her along with alternatives, risks (sphincter damage, rectal damage, colon perforation, incontinence to stool or flatus) recovery explained to the patient and her . They indicate their understanding of this discussion and indicate that they would like to proceed with this procedure. 01/28/19 (postop): Vibrator removed from rectum without problems. Pt d/karin to home from PACU. Departure Discharge to: Home, Self Care Discharge Instructions Home Meds Active Scripts Prednisone (PREDNISONE) 20 Mg Tablet, 40 MG PO QDAY for 2 Days, #4 TAB Prov:KADEEM LIANG Sebastián MONUMENT LETTERER 01/22/19 Reported Medications Fluticasone Prop 50 Mcg Ns (FLONASE 50 MCG NS) 16 Gm [place].susp, 2 SPRAYS NS QDAY, BOT 01/20/19 Montelukast Sodium (SINGULAIR) 10 Mg Tablet, 1 TAB PO QDAY, TAB 01/20/19 Alprazolam 0.5 Mg Tab (ALPRAZOLAM 0.5 MG TAB) 0.5 Mg Tablet, 2 MG PO BID, TAB 01/20/19 Albuterol Sulfate 90 Mcg/Act (PROAIR HFA 90 MCG/ACT) 8.5 Gm Hfa.aer.ad, 1-2 PUFF IH 3-4XD, INHALER 04/25/17 Fluticasone/Salmeterol (ADVAIR 100-50 DISKUS) 1 Each Disk.w.dev, 1 EACH IH BID 04/18/17 Diet: Regular Activity: As Tolerated Problem Qualifiers (1) Rectal foreign body: Encounter type: initial encounter Qualified Codes: T18.5XXA - Foreign body in anus and rectum, initial encounter MANJIT TORRES MD Jan 28, 2019 04:14
--- NOTE | 2019-01-28 04:20 | Post Operative Progress Note ---
Post Operative Progress Note Date: Jan 28, 2019 Time: 04:13 Surgeon: Atilio Dictation number: [id number] Anesthesia: GETA by Dr. Peguero Pre-Op Diagnosis: Rectal foreign body Post-Op Diagnosis: BERENICE Findings: C/W dx Procedure(s): Proctoscopy with extraction of rectal foreign body Specimen Removed:(May be N/A): Vibrator Complications: None Fluids: See anesthesia record Estimated Blood Loss: None Date OP Note Dictated: Jan 28, 2019 Time OP Note Dictated: 04:14 MANJIT TORRES MD Jan 28, 2019 04:20
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
[2019-01-28 05:45] VITALS: BP 122/87
[2019-01-28 06:15] VITALS: BP 119/81
--- NOTE | 2019-01-28 06:15 | NUR ---
0545 PT MOVED TO TX CHARTING, VSS, BACK TO BED AFTER VOIDING, TOLERATING SIPS OF WATER, PAIN NOT IMPROVED BY VOIDING, MEDICATED, NICK AT BEDSIDE 0555 PT C/O NAUSEA AFTER SIPPING WATER, NO ANTIEMETICS ORDERED BY ANESTHESIA, WILL TRY HANGING NEW BAG OF FLUIDS AND HOLSING OFF ON PO INTAKE FOR NOW 0600 100ML UP NR, WIDE OPEN, PT STATES NAUSEA IS IMPROVED, SIPPING ON BROTH 0615 BACK OUT TO WAITING ROOM, PT TOLERATING BROTH, PAIN 6/10 STABLE, VSS
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
== END 2019-01-28 05:45 | disposition home or self-care (01) ==
LOC: ER 00:46 → OR 02:44
PROVIDERS: ATTEND Surgery
DX: T18.5XXA Foreign body in anus and rectum, initial encounter (principal)
CPT/HCPCS: 36415; 45332; 74018; 81025; 88300; 96361; 96374; 96375; 96376; 99284; G0480; J1100; J2001; J2405; J2704; J3010; J3490; J7030; 80320

== ENCOUNTER 2019-03-31 19:39 | Emergency (ER) | payer MEDICAID ==
[2018-05-06 00:30] VITALS: Wt 80.3 kg
--- NOTE | 2019-03-31 19:46 | ER Report ---
History and Physical Time Seen By MD: 19:41 HPI/ROS CHIEF COMPLAINT: Left flank pain HISTORY OF PRESENT ILLNESS: 23-year-old female with history of asthma, depression, presents ambulatory to the ER after being seen at urgent care yesterday. She was seen with headache and body aches. She was diagnosed with urinary tract infection. She was given Bactrim to take for the infection. She was also given high-dose IV steroids. Patient reports she had a negative test yesterday. Today, she developed severe, shooting left-sided flank pain which is now spread to bilateral flanks. Patient's had several episodes of vomiting. She denies diarrhea or dysuria. Last menstrual period was 3 weeks ago. Patient denies photophobia or stiff neck. REVIEW OF SYSTEMS: Respiratory: No cough, no dyspnea. Cardiovascular: No chest pain, no palpitations. Gastrointestinal: No vomiting, no abdominal pain. Musculoskeletal: No back pain. Allergies: Coded Allergies: No Known Drug Allergies (Unverified , 01/20/19) Home Meds Active Scripts Cefuroxime Axetil (CEFUROXIME) 500 Mg Tablet, 500 MG PO BID for infection, #14 TAB Prov:KISHA ROJAS DO 03/31/19 Ondansetron Hcl (ZOFRAN) 4 Mg Tablet, 4 MG PO Q6H PRN for NAUSEA/VOMITING, #10 Prov:KISHA ROJAS DO 03/31/19 Reported Medications Sulfamethoxazole/Trimet 800-160 Mg Tab (BACTRIM DS TABLET) 1 Each Tablet, 1 TAB PO Q12H, TAB 03/31/19 Fluticasone Prop 50 Mcg Ns (FLONASE 50 MCG NS) 16 Gm [place].susp, 2 SPRAYS NS QDAY, BOT 01/20/19 Montelukast Sodium (SINGULAIR) 10 Mg Tablet, 1 TAB PO QDAY, TAB 01/20/19 Alprazolam 0.5 Mg Tab (ALPRAZOLAM 0.5 MG TAB) 0.5 Mg Tablet, 2 MG PO BID, TAB 01/20/19 Albuterol Sulfate 90 Mcg/Act (PROAIR HFA 90 MCG/ACT) 8.5 Gm Hfa.aer.ad, 1-2 PUFF IH 3-4XD, INHALER 04/25/17 Fluticasone/Salmeterol (ADVAIR 100-50 DISKUS) 1 Each Disk.w.dev, 1 EACH IH BID 04/18/17 Past Medical/Surgical History Asthma, smoker. Depression Past surgical history: Roy tooth extraction, childbirth Reviewed Nurses Notes: Yes Old Medical Records Reviewed: Yes Hx Smoking: Yes Smoking Status: Former Smoker Exposure to Second Hand Smoke?: No Hx Substance Use Disorder: No Hx Alcohol Use: No Constitutional Vital Sign - Last 24 Hours 03/31/19 03/31/19 19:49 22:08 Temp 97.9 Pulse 81 Resp 16 14 B/P (MAP) 119/79 128/68 (88) Pulse Ox 96 97 O2 Delivery Room Air Room Air Physical Exam Vital signs stable, afebrile, pulse ox normal General Appearance: patient is alert, has no immediate need for airway protection and no current signs of toxicity. Slightly pale appearing, skin warm and dry, mild distress HEENT: Pupils equal and round no injection. Oropharynx without redness or exudate. Membranes are moist Respiratory: Chest is non tender, lungs are clear to auscultation. Cardiac: regular rate and rhythm Gastrointestinal: Abdomen is soft and non tender, no masses, bowel sounds normal. Left sided CVA tenderness Musculoskeletal: Neck: Neck is supple and non tender. No lymphadenopathy, no meningismus Extremities have full range of motion and are non tender. No calf tenderness or edema Skin: No rashes or lesions. DIFFERENTIAL DIAGNOSIS: After history and physical exam differential diagnosis was considered for flank pain including but not limited to musculoskeletal causes, kidney stone, pyelonephritis, shingles, and intra-abdominal causes such as diverticulitis and appendicitis. Additionally,abdominal pain including but not limited to appendicitis, cholecystitis, gastritis and urinary tract infection. Medical Decision Making Data Points Result Diagram: 03/31/19195403/31/191954 Laboratory Hematology Test 03/31/19 19:55 White Blood Count 10.4 k/uL (4.5-11.0) Red Blood Count 5.08 M/uL (4.17-5.56) Hemoglobin 15.8 g/dL (12.0-16.0) Hematocrit 45.5 % (34.0-47.0) Mean Corpuscular Volume 89.6 fL (80.0-96.0) Mean Corpuscular Hemoglobin 31.0 pg (26.0-33.0) Mean Corpuscular Hemoglobin Concent 34.6 g/dL (32.0-36.0) Red Cell Distribution Width 12.1 % (11.5-14.5) Platelet Count 207 K/uL (150-450) Mean Platelet Volume 10.1 fL (7.2-11.1) Neutrophils (%) (Auto) 60.0 % (39.4-72.5) Lymphocytes (%) (Auto) 28.1 % (17.6-49.6) Monocytes (%) (Auto) 9.5 % (4.1-12.4) Eosinophils (%) (Auto) 2.1 % (0.4-6.7) Basophils (%) (Auto) 0.3 % (0.3-1.4) Nucleated RBC Relative Count (auto) 0.0 /100WBC Neutrophils # (Auto) 6.3 K/uL (2.0-7.4) Lymphocytes # (Auto) 2.9 K/uL (1.3-3.6) Monocytes # (Auto) 1.0 K/uL (0.3-1.0) Eosinophils # (Auto) 0.2 K/uL (0.0-0.5) Basophils # (Auto) 0.0 K/uL (0.0-0.1) Nucleated RBC Absolute Count (auto) 0.00 K/uL Chemistry Test 03/31/19 19:55 Sodium Level 139 mmol/L (137-145) Potassium Level 3.5 mmol/L (3.5-5.0) Chloride Level 109 mmol/L (98-107) Carbon Dioxide Level 20 mmol/L (22-31) Blood Urea Nitrogen 13 mg/dl (7-18) Creatinine 0.70 mg/dl (0.52-1.04) Glomerular Filtration Rate Calc > 60.0 Random Glucose 105 mg/dl (75-110) Calcium Level 8.7 mg/dl (8.4-10.2) Total Bilirubin 0.6 mg/dl (0.2-1.3) Aspartate Amino Transf (AST/SGOT) 21 U/L (0-35) Alanine Aminotransferase (ALT/SGPT) 32 U/L (0-56) Alkaline Phosphatase 65 U/L (0-126) Total Protein 7.0 g/dl (6.3-8.2) Albumin 4.1 g/dl (3.5-5.0) Amylase Level 54 U/L (0-110) Lipase 61 U/L (23-300) Urinalysis Test 03/31/19 19:38 03/31/19 19:55 Urine Color Yellow Urine Clarity Slightly-cloudy Urine pH 6.0 pH (4.8-9.5) Urine Specific [place] 1.009 Urine Protein Negative mg/dL (NEGATIVE) Urine Glucose (UA) Negative mg/dL (NEGATIVE) Urine Ketones Negative mg/dL (NEGATIVE) Urine Blood Small (NEGATIVE) Urine Nitrite Negative (NEGATIVE) Urine Bilirubin Negative (NEGATIVE) Urine Urobilinogen Negative mg/dL (0.2-1.9) Urine Leukocyte Esterase Large (NEGATIVE) Urine RBC 13 /HPF (0-2/HPF) Urine WBC 17 /HPF (0-5/HPF) Urine Squamous Epithelial Cells Many /LPF (</=FEW) Urine Bacteria Few /HPF (NONE-FEW) Urine Mucus None /HPF (NONE-FEW) Urine HCG, Qualitative Negative (NEGATIVE) Microbiology Microbiology Date/Time Source Procedure Growth Status 03/31/19 00:00 Clean Catch Midstream Ur Urine Culture - Final Complete ED Course/Re-evaluation Clinical Indication for ER IV: Hydration, IV Access ED Course Patient was admitted to an examination room. H&P was done. The differential diagnoses was considered. Patient with crampy diffuse abdominal pain after eating corn beef and this is less likely in her. Repeat laboratory studies are unremarkable. Patient's treated with Zofran, Phenergan, Toradol and told 20 mg by mouth. Her pain is much improved.. Diagnostic studies are unremarkable. Her urinary tract infection is cleared. She is advised clear liquid diet for 24-48 hours. Advance to [place] diet. Patient hard. He has a follow-up scheduled with her primary care provider on Tuesday, 04/04. The patient for Phenergan and for Bentyl to take at home as needed for symptom management. Decision to Disposition Date: Mar 31, 2019 Decision to Disposition Time: 21:33 Depart Departure Latest Vital Signs Vital Signs Date Time Temp Pulse Resp B/P (MAP) Pulse Ox O2 Delivery O2 Flow Rate FiO2 03/31/19 22:08 14 128/68 (88) 97 Room Air 03/31/19 19:49 97.9 81 Impression: Primary Impression: Flank pain Additional Impressions: Urinary tract infection Vomiting Condition: Improved Disposition: HOME OR SELF-CARE Referrals: BLADIMIR MARTIN DO (PCP) New Scripts Cefuroxime Axetil (CEFUROXIME) 500 Mg Tablet 500 MG PO BID for infection, #14 TAB Prov: KISHA ROJAS DO 03/31/19 Ondansetron Hcl (ZOFRAN) 4 Mg Tablet 4 MG PO Q6H PRN for NAUSEA/VOMITING, #10 Prov: KISHA ROJAS DO 03/31/19 Patient Instructions: Acute Nausea and Vomiting (ED), Urinary Tract Infection in Women (DC) Additional Instructions: Alternate ibuprofen 600 and Tylenol 650 mg every 4 hours for pain relief Stop Bactrim DS/sulfa antibiotic Start new antibiotic Follow clear liquid diet for 24 hours and advance to Angelique diet(bananas, rice, applesauce, toast) Follow-up with your primary care if unimproved in 3-5 days. Problem Qualifiers Additional Impressions: Urinary tract infection Urinary tract infection type: acute cystitis Hematuria presence: without hematuria Qualified Codes: N30.00 - Acute cystitis without hematuria Vomiting Vomiting type: unspecified Vomiting Intractability: non-intractable Tha sea presence: with nausea Qualified Codes: R11.2 - Nausea with vomiting, unspecified KISHA ROJAS DO Mar 31, 2019 19:46
[2019-03-31] MEDS ORDERED: NS(*) 0.9% 1000 ML BAG 1,000 ML IV ONE (19:52)
[2019-03-31] MEDS ORDERED: SULF-198 PO (19:54)
[2019-03-31] MEDS ORDERED: KETOROLAC 30 MG/ML VIAL IVP ONE (19:55)
[2019-03-31] MEDS ORDERED: ONDANSETRON 4 MG/2 ML VIAL IVP ONE (19:55)
[2019-03-31] MEDS ORDERED: IOPAMIDOL 76% 100 ML INFUS BTL 100 ML ONE (20:06)
[2019-03-31 20:24] LABS: PLATELET COUNT, AUTOMATED 207 K/uL (150-450)
[2019-03-31] MEDS ORDERED: ONDA4TAB97 PO (21:39)
[2019-03-31] MEDS ORDERED: CEFU500T10 PO (21:39)
--- NOTE | 2019-03-31 21:52 | RADIOLOGY IMAGING REPORT ---
FACILITY: [facility] - [place] PATIENT NAME: Tami Villasenor : 1995 MR: [id number] V: [id number] EXAM DATE: [id number] ORDERING PHYSICIAN: KISHA ROJAS TECHNOLOGIST: Location: [facility] [place] Patient: Tami Villasenor : 1995 Visit/Account:[id number] Date of Sevice: 03/31/2019 CT abdomen and pelvis with IV contrast Indication: Bilateral flank pain for 3 days. Comparison: None available. . Technique: Axial CT images were obtained through the abdomen and pelvis during injection of nonioni c iodinated intravenous contrast. Reformatted coronal and sagittal images were also obtained. One of the following dose optimization techniques was utilized in the performance of this exam: Autom ated exposure control; adjustment of the mA and/or kV according to the patient's size; or use of an i terative reconstruction technique. Specific details can be referenced in the facility's radiology C T exam operational policy. Contrast: 75 ml of Isovue-370 IV contrast. Findings: Lower lung montgomery: Limited views lower lung field are unremarkable. Liver: No focal parenchymal abnormality of the liver. Biliary: Gallbladder appears unremarkable as well as the intra and extra hepatic biliary system. Pancreas: Normal appearance. Spleen: Normal appearance. Adrenal glands: Unremarkable. Kidneys / retroperitoneum: No evidence of nephrolithiasis or hydronephrosis. No focal normality. Bowel / peritoneum / mesenteries: Colon shows no focal normality. The appendix is normal. Small bowel shows no focal normality or obstruction. The stomach is unremarkable with debris in the lumen. No fluid collections, free air or focal areas of inflammation. Very small amount of free fluid in pel vis likely physiologic. Lymph node assessment: No pathologic adenopathy identified. Pelvic structures: Left ovary contains a 3 cm collapsing cyst. The remaining pelvic structures vis ualized within normal limits. Vessels: No significant atherosclerotic calcifications seen throughout a nonaneurysmal abdominal aort a and branches. Musculoskeletal / Body wall: No acute or aggressive osseous abnormality. Bone island in the right rock um. IMPRESSION: 1. Left ovary shows a 3 cm collapsing cyst. 2. The remainder of the exam is unremarkable. Report Dictated By: Berry Bejarano at 03/31/2019 9:35 PM Report E-Signed By: Berry Bejarano at 03/31/2019 9:43 PM WSN:[id number]
[2019-03-31] MEDS ORDERED: ONDANSETRON 4 MG ODT TH SL ONE (21:55)
[2019-03-31] MEDS ORDERED: CEFUROXIME AXETIL 250 MG TAB PO ONE (21:55)
[2019-03-31 22:08] VITALS: BP 128/68
== END 2019-03-31 22:08 | disposition home or self-care (01) ==
LOC: ER 19:49
DX: N30.00 Acute cystitis without hematuria (principal); R11.2 Nausea with vomiting, unspecified; R10.9 Unspecified abdominal pain
CPT/HCPCS: 74177; 81001; 81025; 82150; 83690; 85025; 87088; 96361; 96374; 96375; 99284; J1885; J2405; J7030; Q9967; S0119; 82040; 82247; 82310; 82374; 82435; 82565; 82947; 84075; 84132; 84155; 84295; 84450; 84460; 84520